=== PATIENT | male | born 1940 | race Caucasian/White ===

== ENCOUNTER → 2016-08-10 | Outpatient (CLI) | payer OTHER ==
[~2016-08-10] MED LIST: ACET-1256 PO; AMOX250S5 PO; ASPEC81 PO; CALC0.2510 PO; CHOL1CHW10 PO; CLOP1TAB15 PO; FLUT0.15; FLUT1AER5 INH; FRS/40 PO; HYDR2.5L TOP; IPRA1AER2 INH; KETO0.5S33 OPR; METO100T14 PO; PRED1SUS3 OPR; SERT-234 PO; SIMV80TA2 PO; TRIA0.5O TOP
[2016-08-10 13:02] LABS: BLOOD UREA NITROGEN 48 mg/dl (7-18); BUN/CREATININE RATIO 11.6 (10-20); CALCIUM 8.9 mg/dl (8.5-10.1); CARBON DIOXIDE 23 mmol/L (21-32); CHLORIDE 106 mmol/L (98-107); GLUCOSE 102 mg/dl (70-99); POTASSIUM 4.2 mmol/L (3.5-5.1); SODIUM 142 mmol/L (136-145)
== END | disposition home or self-care (01) ==
LOC: C.LABPVFM 10:21
PROVIDERS: ATTEND Internal Medicine Nephrology
DX: N18.4 Chronic kidney disease, stage 4 (severe) (principal); N25.81 Secondary hyperparathyroidism of renal origin; E55.9 Vitamin D deficiency, unspecified; D63.8 Anemia in other chronic diseases classified elsewhere

== ENCOUNTER → 2016-09-14 | Outpatient (CLI) | payer OTHER ==
--- NOTE | 2016-09-14 16:38 | DIAGNOSTIC IMAGING REPORT ---
CT OF THE CHEST WITHOUT IV CONTRAST CLINICAL HISTORY: Follow-up pulmonary nodules. COMPARISON STUDY: Chest CT January 15, 2015 and October 01, 2015. CT DOSE: 225.17 mGycm TECHNIQUE: Axial images of the chest were obtained without IV contrast. Images were reviewed in the axial, sagittal, and coronal planes. IV contrast was not administered for this examination. FINDINGS: There are procedural findings consistent with placement of endovascular stent graft within a large thoracoabdominal aortic aneurysm. There has been continued increase in size of the aneurysm sac since exam of October 01, 2015. This is suboptimally assessed on this unenhanced exam. The proximal descending thoracic aorta measures 9.2 x 7.6 cm. It previously measured 7 x 5.8 cm. The inferior portion of the aneurysm involving the mid descending thoracic aorta measures approximately 10.3 x 8.5 cm. It previously measured 9.3 x 6.4 cm. Areas of increased attenuation within the aneurysm sac are again noted. Severe emphysema is present. A 5 mm subpleural nodule within left lower lobe is unchanged and prior exams. This is benign. There are no new nodules. There are no suspicious pulmonary nodules. The bony thorax is unremarkable. Visualized portions of the upper abdomen demonstrate multiple hepatic cysts. IMPRESSION: 1. Severe emphysema. No suspicious pulmonary nodules. 2. Findings consistent with placement of endovascular stent graft within the thoracoabdominal aortic aneurysm. Continued increase in size of the aneurysm sac since exam of October 01, 2015, as described above. The findings are suboptimally assessed on this unenhanced exam. Discussed with Kelli Santos at time of dictation. Electronically signed by: Jayesh Hart M.D. 09/14/2016 4:35 PM Dictated Date/Time: 09/14/2016 4:06 PM
== END | disposition home or self-care (01) ==
LOC: C.CTS 13:19
PROVIDERS: ATTEND Nurse Practitioner
DX: J43.9 Emphysema, unspecified (principal); I71.6 Thoracoabdominal aortic aneurysm, without rupture

== ENCOUNTER 2016-11-27 11:19 | Emergency (ER) | payer OTHER ==
[~2016-11-27] VITALS: Ht 170.2 cm; Wt 65.6 kg
[~2016-11-27 11:19] MED LIST changes: -ACET-1256 PO; -CALC0.2510 PO; -FLUT0.15; -FLUT1AER5 INH; -FRS/40 PO; -HYDR2.5L TOP; -TRIA0.5O TOP
[2016-11-27 11:20] VITALS: TEMP 36.6; Ht 170.2 cm; Wt 65.6 kg
[2016-11-27 12:20] VITALS: BP 144/93; PULSE 79; O2SAT 96
[2016-11-27] MEDS ORDERED: DIPHTHERIA/TETANUS/PERTUSSIS 0.5 ML SYR/VIAL ONE (12:23)
--- NOTE | 2016-11-27 12:26 | EMERGENCY ROOM VISIT NOTE ---
ED Visit Note First contact with patient: 12:05 I did evaluate and examine this patient myself. I did guide management for the patient. I agree with the APC's assessment as discussed. Please see the APC's dictation for further details. The patient was scratched on the left hand by his pet cat. He has a bleeding wound to the left hand which was washed and dressed. Hemostasis was achieved. He was advised to watch for any signs of infection and to follow with his doctor.
[2016-11-27] MEDS ORDERED: DIPHTHERIA/TETANUS/PERTUSSIS 0.5 ML SYR/VIAL IM. ONE (12:30)
--- NOTE | 2016-11-27 21:39 | EMERGENCY ROOM VISIT NOTE ---
History First contact with patient: 12:05 Chief Complaint: LACERATION/CUT (NON-SUTURE) Stated Complaint: BLEEDING ON BACK OF L HAND Nursing Triage Summary: top left habd cat scratch History of Present Illness The patient is a 76 year old male who presents to the Emergency Room with complaints of a persistent bleeding wound on the back of his left hand. The patient reports that he was scratched by his cat. The patient is currently on Plavix and aspirin for history of aortic aneurysm. He was unable to stop the bleeding with direct pressure. He denies any pain, swelling or drainage from the wound. He is uncertain of his last tetanus immunization. 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 [place] (10) Hypertrophy (Benign) Of Prostate W/O Urinary Obst & Oth Luts (11) Hypothyroidism Nos (12) Mixed Hyperlipidemia (13) Thoracic Aortic Embolism (14) Thoracoabdominal Aortic Aneurysm, Without Rupture (15) Tobacco Use Disorder (16) Vitamin D Deficiency, Unspecified Surgical Problems: (1) Cataract Extraction Status, Right Eye (2) Peripheral Vascular Angioplasty Status W Implants And Grafts Family History FH: cancer FH: hypertension Social History Smoking Status: Former Smoker Alcohol Use: none Marital Status: Occupation Status: retired Current/Historical Medications Scheduled Amoxicillin (Amoxil), 40 ML PO UD Aspirin Enteric Coated (Ecotrin Or Generic *), 81 MG PO QAM Cholecalciferol (Vitamin D3), 2 TAB PO QAM Clopidogrel (Plavix), 75 MG PO QAM Ipratropium-Albuterol (Combivent Respimat), 1 PUFFS INH QID Ketorolac Tromethamine (Ophth) (Acular Oph), 1 DROPS OPR QID Metoprolol Tartrate (Lopressor) (Lopressor), 100 MG PO QAM Prednisolone Acetate 1% Oph (Pred Forte 1% Oph), 1 DROP OPR TID Sertraline (Zoloft), 100 MG PO QAM Simvastatin (Zocor), 40 MG PO QPM Allergies Coded Allergies: Heparin (Unverified Allergy, Unknown, unsure, 02/24/16) Sulfa Antibiotics (Verified Allergy, Unknown, "SULFA DRUGS": UNKNOWN, 02/23) Physical Exam Vital Signs Date Time Temp Pulse Resp B/P (MAP) Pulse Ox O2 Delivery O2 Flow Rate FiO2 11/27/16 12:20 79 18 144/93 96 Room Air 11/27/16 11:20 36.6 115 18 120/87 99 Room Air Physical Exam CONSTITUTIONAL: Healthy and well nourished. Alert and oriented X 3 with positive affect. HEENT: Normocephalic, atraumatic. Pupils equal, round and reactive. NECK: Full active range of motion without discomfort. MUSCULOSKELETAL: Examination of the dorsal left hand shows a superficial laceration with mild oozing of blood. The wound does not have a tendency to open. The patient has full extensor function of the fingers. No erythema, induration or purulent drainage from the wound. INTEGUMENTARY: No rash or other significant dermatologic conditions noted. NEUROLOGIC: No focal neurologic deficits noted. Left hand and fingers are sensory intact. Medical Decision & Procedures Medications Administered Medications (Trade) Dose Ordered Sig/[place] Route Start Time Stop Time Status Last Admin Dose Admin Diphtheria/ Pertussis/Tetanus Vacc (Adacel Inj) 0.5 ml STK-MED ONCE .ROUTE 11/27/16 12:23 11/27/16 12:24 DC 11/27/16 12:26 0.5 ML Procedure The peripheral tissue was cleansed, then a pressure dressing was applied by me using a roll of gauze and Adaptic over the wound. This was secured using Coban tape. ED Course Patient history and physical exam were performed. Nurse's notes were reviewed. Vital signs were reviewed and normal. Adacel was administered IM. A pressure dressing was applied by me. I suspect that this bleeding will easily stop with a pressure dressing. He was instructed to leave the pressure dressing in place for the next 24 hours, and return to the emergency department for any persistent bleeding, at which time I would likely place a couple sutures. The patient was happy with plan of care, and denied any pain at the time of discharge. The patient was also seen and examined by Dr. Briceno, ED attending physician, who agrees with workup and plan of care. Medical Decision Impression Primary Impression: Laceration of left hand Departure Information Referrals No Doctor, Assigned (PCP) Patient Instructions [facility] Problem Qualifiers Primary Impression: Laceration of left hand Encounter type: initial encounter Foreign body presence: without foreign body Qualified Codes: S61.412A - Laceration without foreign body of left hand , initial encounter
== END 2016-11-27 12:42 | disposition home or self-care (01) ==
LOC: C.EDB 11:20 → C.EDD 12:42
DX: S61.412A Laceration without foreign body of left hand, initial encounter (principal); W55.03XA Scratched by cat, initial encounter; Z79.01 Long term (current) use of anticoagulants; I12.9 Hypertensive chronic kidney disease with stage 1 through stage 4 chronic kidney disease, or unspecified chronic kidney disease; N18.9 Chronic kidney disease, unspecified; Z87.891 Personal history of nicotine dependence; I25.10 Atherosclerotic heart disease of native coronary artery without angina pectoris; J44.9 Chronic obstructive pulmonary disease, unspecified; I71.4 Abdominal aortic aneurysm, without rupture; E55.9 Vitamin D deficiency, unspecified

== ENCOUNTER → 2016-12-28 | Outpatient (CLI) | payer OTHER ==
[~2016-12-28] MED LIST changes: +ACET-1256 PO; +CALC0.2510 PO; +FLUT0.15; +FLUT1AER5 INH; +FRS/40 PO; +HYDR2.5L TOP; +TRIA0.5O TOP
[2016-12-28 17:16] LABS: BASO % 0.2 %; BASO ABS # 0.03 K/uL (0-0.2); COMPLETE YES; EOS % 0.1 %; HEMATOCRIT 32.7 % (42-52); IG% 0.4 %; LYMPH % 11.9 %; LYMPH ABS # 1.68 K/uL (1.2-3.4); MEAN CELL VOLUME 86.7 fL (80-100); MEAN CORPUSCULAR HEMOGLOBIN 28.6 pg (25-34); MEAN PLATELET VOLUME 8.4 fL (7.4-10.4); MONO % 8.3 %; NEUT % 79.1 %; PLATELET COUNT 420 K/uL (130-400); RED BLOOD COUNT 3.77 M/uL (4.7-6.1); WHITE BLOOD COUNT 14.14 K/uL (4.8-10.8)
[2016-12-28 17:32] LABS: ALT/SGPT 18 U/L (12-78); AST/SGOT 21 U/L (15-37); BLOOD UREA NITROGEN 46 mg/dl (7-18); BUN/CREATININE RATIO 11.2 (10-20); CALCIUM 9.1 mg/dl (8.5-10.1); CARBON DIOXIDE 20 mmol/L (21-32); CHLORIDE 103 mmol/L (98-107); GLUCOSE 113 mg/dl (70-99); POTASSIUM 4.2 mmol/L (3.5-5.1); SODIUM 134 mmol/L (136-145)
[2016-12-28 17:35] LABS: ALB/GLOB RATIO 0.5 (0.9-2); ALKALINE PHOSPHATASE 79 U/L (45-117)
== END | disposition home or self-care (01) ==
LOC: C.LABPVFM 14:11
PROVIDERS: ATTEND Nurse Practitioner
DX: I12.9 Hypertensive chronic kidney disease with stage 1 through stage 4 chronic kidney disease, or unspecified chronic kidney disease (principal); R53.1 Weakness; N18.9 Chronic kidney disease, unspecified

== ENCOUNTER → 2017-01-02 | Outpatient (CLI) | payer OTHER | END | disposition home or self-care (01) | LOC: C.LABPVFM 10:57 | PROVIDERS: ATTEND Nurse Practitioner | DX: R63.4 Abnormal weight loss (principal); R53.1 Weakness ==

== ENCOUNTER 2017-01-14 13:52 | Inpatient (IN) | payer OTHER ==
[~2017-01-14] VITALS: Ht 170.2 cm; Wt 57.0 kg
[~2017-01-14 13:52] MED LIST changes: -ACET-1256 PO; -CALC0.2510 PO; -FLUT0.15; -FLUT1AER5 INH; -FRS/40 PO; -HYDR2.5L TOP; -TRIA0.5O TOP
[2017-01-14] MEDS ORDERED: HYDR2.5L TOP (14:58)
[2017-01-14] MEDS ORDERED: CALC0.2510 PO (14:58)
[2017-01-14] MEDS ORDERED: FRS/40 PO (14:58)
[2017-01-14] MEDS ORDERED: ACET-1256 PO (14:58)
[2017-01-14] MEDS ORDERED: TRIA0.5O TOP (14:58)
[2017-01-14] MEDS ORDERED: FLUT1AER5 INH (14:58)
[2017-01-14 15:00] VITALS: BP 123/75; PULSE 111; TEMP 36.6; O2SAT 96; Ht 170.2 cm; Wt 57.0 kg
[2017-01-14] MEDS ORDERED: ONDANSETRON INJ 2 MG/ML 2 ML VIAL IV PRN (15:00)
[2017-01-14 15:31] LABS: HEMATOCRIT 27.9 % (42-52); MEAN CELL VOLUME 85.8 fL (80-100); MEAN CORPUSCULAR HEMOGLOBIN 28.6 pg (25-34); MEAN CORPUSCULAR HGB CONC 33.3 g/dl (32-36); MEAN PLATELET VOLUME 7.8 fL (7.4-10.4); PLATELET COUNT 325 K/uL (130-400); RED BLOOD COUNT 3.25 M/uL (4.7-6.1)
[2017-01-14] MEDS ORDERED: FLUT0.15 (15:38)
[2017-01-14 15:42] LABS: INR 1.1 (0.9-1.1); PARTIAL THROMBOPLASTIN RATIO 1.2; PROTHROMBIN TIME (PATIENT) 11.8 SECONDS (9.0-12.0)
[2017-01-14] MEDS ORDERED: PROMETHAZINE HCL INJ 12.5 MG in SODIUM CHLORIDE 0.9% 50ML 50 ML IV PRN (15:45)
--- NOTE | 2017-01-14 15:54 | DIAGNOSTIC IMAGING REPORT ---
CHEST ONE VIEW PORTABLE CLINICAL HISTORY: Preoperative chest COMPARISON STUDY: CT scan dated 09/14/2016 FINDINGS: There is a stented aneurysm of the descending thoracic aorta. The heart is normal in size. There is no failure. There is no focal pulmonary consolidation.[ IMPRESSION: 1. No active disease in the chest 2. Endovascular stent graft within a thoracic aortic aneurysm. Electronically signed by: Caleb Meneses M.D. 01/14/2017 3:53 PM Dictated Date/Time: 01/14/2017 3:52 PM
[2017-01-14 15:56] LABS: BUN/CREATININE RATIO 10.6 (10-20); CREATININE 3.3 mg/dl (0.60-1.40); MAGNESIUM 2.2 mg/dl (1.8-2.4); POTASSIUM 3.8 mmol/L (3.5-5.1)
[2017-01-14 15:59] LABS: ALB/GLOB RATIO 0.4 (0.9-2); PHOSPHORUS 3.8 mg/dl (2.5-4.9)
[2017-01-14 16:17] VITALS: BP 113/73; PULSE 104; TEMP 36.8; O2SAT 96
--- NOTE | 2017-01-14 17:36 | History and Physical ---
History & Physical Date & Time of Service: Jan 14, 2017 ~ 15:00 Chief Complaint: End Stage Renal Disease Primary Care Physician: Kelli Santos C.R.N.P History of Present Illness 76 year old male who presents to the hospital for direct admission by referral of Dr. Galan for initiation of dialysis. Patient has a long standing history of CKD. He had a large AAA repair done in 2014 with subsequent NICHOLAS from which he never recovered. He has been getting close to need dialysis. He has nephrotic range proteinuria with severe underlying vascular disease. Over the past month patient reports increasing weakness. He has a few falls from which he attributes to loosing his balance. No loss of consciousness. He reports episodes of mild confusion. He has had a very poor appetite and weight loss of 15 pounds. He has had a few episodes of vomiting. He denies hematemesis or coffee ground emesis. No abdominal pain or diarrhea. He denies chest pain and shortness of breath. No lower extremity edema. He denies fever and chills. He continues to make a small amount of urine. At the time of my exam, patient is resting in bed in no acute distress. Past Medical/Surgical History Medical Problems: (1) Abdominal aortic aneurysm Status: Chronic (2) Anemia, chronic disease Status: Chronic (3) CKD (chronic kidney disease), stage IV Status: Chronic (4) Dyslipidemia Status: Chronic (5) Heparin induced thrombocytopenia Status: Chronic (6) HTN (hypertension) Status: Chronic (7) Thoracic aortic aneurysm Permanent Comment: CT 09/2016 - The proximal descending thoracic aorta measures 9.2 x 7.6 cm. It previously measured 7 x 5.8cm. The inferior portion of the aneurysm involving the mid descending thoracic aorta measures approximately 10.3 x 8.5 cm. It previously measured 9.3 x 6.4 cm. Status: Chronic (8) Thoracic Aortic Stent Graft Status: Chronic Surgical Problems: (1) H/O thoracic aortic aneurysm repair Permanent Comment: 07/30/2014- endovascular repair descending thoracic aortic; [facility] [place] Status: Chronic (2) History of vasectomy Status: Chronic (3) S/P AAA repair Permanent Comment: 07/05/2006- open AAA repair with tube graft, suprarenal clamp , Dr. Aviles Status: Chronic (4) S/P tonsillectomy Status: Chronic Family History FH: cancer FH: hypertension Social History Smoking Status: Former Smoker Alcohol Use: none Immunizations History of Influenza Vaccine: Yes Influenza Vaccine Date: Jul 31, 2014 Multi-Drug Resistant Organisms History of MDRO: No Allergies Coded Allergies: Heparin (Unverified Allergy, Unknown, unsure, 02/24/16) Sulfa Antibiotics (Verified Allergy, Unknown, "SULFA DRUGS": UNKNOWN, 02/23) Home Medications Scheduled Aspirin Enteric Coated (Ecotrin Or Generic *), 81 MG PO QAM Calcitriol (Rocaltrol Cap), 1 CAP PO 3XWK Cholecalciferol (Vitamin D3), 3 TAB PO QAM Clopidogrel (Plavix), 75 MG PO QAM Fluticasone Propionate (Nasal) (Flonase Allergy Relief), 2 SPRAYS NA BID Hydrocortisone (Topical) (Hydrocortisone), 1 APPLN TOP BID Ipratropium-Albuterol (Combivent Respimat), 1 PUFFS INH QID Metoprolol Tartrate (Lopressor) (Lopressor), 50 MG PO BID Sertraline (Zoloft), 50 MG PO QAM Simvastatin (Zocor), 40 MG PO QPM Scheduled PRN Acetaminophen (Tylenol), 1 TAB PO Q8 PRN for Headache Triamcinolone Acetonide (Topic (Triamcinolone Acetonide), 1 APPLN TOP BID PRN for prn Review of Systems ROS per HPI, all other systems reviewed and negative Physical Exam Vital Signs Date Time Temp Pulse Resp B/P (MAP) Pulse Ox O2 Delivery O2 Flow Rate FiO2 01/14/17 16:17 36.8 104 20 113/73 (86) 96 Room Air 01/14/17 15:00 36.6 111 19 123/75 96 Room Air General Appearance: no apparent distress Head: normocephalic Eyes: normal inspection ENT: hearing grossly normal Neck: supple, no JVD Respiratory/Chest: lungs clear, normal breath sounds, no respiratory distress Cardiovascular: regular rate, rhythm, no edema, normal peripheral pulses Abdomen/GI: normal bowel sounds, non tender, soft Extremities/Musculoskelatal: normal inspection, no calf tenderness Neurologic/Psych: no motor/sensory deficits, alert, normal mood/affect, oriented x 3 Skin: normal color, warm/dry Diagnostics Laboratory Results Results Past 24 Hours Test 01/14/17 15:13 Range/Units White Blood Count 8.50 4.8-10.8 K/uL Red Blood Count 3.25 4.7-6.1 M/uL Hemoglobin 9.3 14.0-18.0 g/dL Hematocrit 27.9 42-52 % Mean Corpuscular Volume 85.8 80-100 fL Mean Corpuscular Hemoglobin 28.6 25-34 pg Mean Corpuscular Hemoglobin Concent 33.3 32-36 g/dl RDW Standard Deviation 46.1 36.4-46.3 fL RDW Coefficient of Variation 14.5 11.5-14.5 % Platelet Count 325 130-400 K/uL Mean Platelet Volume 7.8 7.4-10.4 fL Prothrombin Time 11.8 9.0-12.0 SECONDS Prothromb Time International Ratio 1.1 0.9-1.1 Activated Partial Thromboplast Time 30.8 21.0-31.0 SECONDS Partial Thromboplastin Ratio 1.2 Sodium Level 136 136-145 mmol/L Potassium Level 3.8 3.5-5.1 mmol/L Chloride Level 103 98-107 mmol/L Carbon Dioxide Level 25 21-32 mmol/L Anion Gap 8.0 3-11 mmol/L Blood Urea Nitrogen 35 7-18 mg/dl Creatinine 3.30 0.60-1.40 mg/dl Est Creatinine Clear Calc Drug Dose 16.2 ml/min Estimated GFR () 19.6 Estimated GFR (Non- 16.9 BUN/Creatinine Ratio 10.6 10-20 Random Glucose 104 70-99 mg/dl Calcium Level 9.0 8.5-10.1 mg/dl Phosphorus Level 3.8 2.5-4.9 mg/dl Magnesium Level 2.2 1.8-2.4 mg/dl Total Bilirubin 0.3 0.2-1 mg/dl Aspartate Amino Transf (AST/SGOT) 19 15-37 U/L Alanine Aminotransferase (ALT/SGPT) 26 12-78 U/L Alkaline Phosphatase 91 45-117 U/L Total Protein 7.3 6.4-8.2 gm/dl Albumin 1.9 3.4-5.0 gm/dl Globulin 5.4 2.5-4.0 gm/dl Albumin/Globulin Ratio 0.4 0.9-2 Diagnostic Radiology CXR IMPRESSION: 1. No active disease in the chest 2. Endovascular stent graft within a thoracic aortic aneurysm. Impression Assessment and Plan ESRD - admitted to tele - patient with long standing history of CKD with nephrotic range proteinuria, has been close to needing dialysis, developed uremic symptoms over the past month - patient referred for direct admission by nephrology for placement of tunnelled dialysis catheter and to start HD - does not appear to be volume overloaded - creat at recent baseline - ASA and Plavix on hold for catheter placement tomorrow with Dr. Farrell - case discussed with Dr. 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 DISPO - In my clinical judgment this beneficiary meets acute admission criteria, established by [facility], that includes being hospitalized through two midnights. Advanced Directives Existing Living Will: No Existing Power of Butcher Apprentice: No VTE Prophylaxis VTE Risk Assessment Done? Y/N: Yes Risk Level: Moderate Note ATTENDING ADDENDUM Record reviewed. Patient interviewed and examined. Care coordinated with SAILAJA Shaw. Please refer to her documentation for patient's history. Briefly, 76-year-old male followed by Dr. Yarbrough for Nephrology with progressive renal disease and associated uremic symptoms. Admitted for vascular access and initiation of hemodialysis. EXAM: General- no acute distress VS- as noted Lungs- clear to auscultation Heart- regular Abdomen- normal bowel sounds, soft, nontender Extremities- no pretibial edema or calf tenderness Neuro- alert, oriented DATA: Lab studies as noted. ASSESSMENT AND PLAN: Progressive CKD, now with uremic symptoms. Admitted for vascular access and initiation of hemodialysis. Nephrology and Vascular Surgery consulted. Please refer to MEHREEN Brewer's documentation for discussion of other issues. Walter Marrero MD .
[2017-01-14] MEDS: IPRATROPIUM BROMIDE/ALBUTEROL respimat INH INH SCH ×2 (17:57→20:30)
--- NOTE | 2017-01-14 18:08 | NEPHROLOGY CONSULTATION ---
DATE OF CONSULTATION: 01/14/2017 ATTENDING OF RECORD: Dr. Marrero. REASON FOR CONSULTATION: CKD stage V, not yet on dialysis. HISTORY OF PRESENT ILLNESS: This is a 76-year-old male with CKD stage V, not yet on dialysis, who follows with my partner, Dr. Sapna Yarbrough, significant history includes thoracoabdominal aortic aneurysm, who underwent a repair in 2014 with a hybrid graft. 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 The patient had an atrophic right kidney. No NSAIDs. The patient is also with a history of esophageal dilatation. The patient did visit the [facility] for dialysis training. The patient is interested in doing dialysis at home if possible. The patient over the past 6 weeks had had worsening weight loss, fatigue, decreased appetite, nausea, vomiting and several falls. The patient feels that it is time to start dialysis. PAST MEDICAL HISTORY: AAA, HIT, CKD stage V, COPD, hyperlipidemia, and anemia of chronic kidney disease. PAST SURGICAL HISTORY: AAA repair x2, tonsillectomy, and vasectomy. FAMILY HISTORY: Significant for AAA in brother. SOCIAL HISTORY: The patient is single, but has a significant other, who lives with him for over 20 years. Former smoker, quit in 2014. Occasional alcohol. No drugs. REVIEW OF SYSTEMS: No fevers. Positive fatigue. Positive weight loss. No headaches. No vision difficulty. No dysphagia. Positive shortness of breath on exertion, which is chronic. No chest pain or edema. No cough. Positive nausea. Positive vomiting. No hematuria. Positive nocturia. No arthritis. No rash or itching. All other review of systems otherwise negative. CURRENT MEDICATIONS: Reviewed: PHYSICAL EXAMINATION: VITAL SIGNS: Stable. GENERAL: Awake, alert, and oriented x3. EYES: No scleral icterus. ENT: Moist mucous membranes. NECK: Supple. PULMONARY: Clear to auscultation. CARDIAC: regular ABDOMEN: Bowel sounds positive. Soft and nontender. EXTREMITIES: No clubbing, cyanosis or edema. NEUROLOGICAL: Nonfocal. DERMATOLOGIC: No rash or ulcers noted. LABORATORY DATA: White count 8.5, H&H 9.3 and 27.9, and platelet count is 325. BMP is pending. Coags pending. IMPRESSION AND PLAN: 1. Chronic kidney disease, stage V with uremic symptoms. Plan is for a tunneled line tomorrow by Dr. Farrell. Currently n.p.o. past midnight. We will continue to hold the patient's Plavix. Plan on a short 2-hour dialysis treatment after tunneled line placement tomorrow and we will dialyze daily and arrange for dialysis to be set up at the [facility]. 2. Anemia of renal failure. Hemoglobin level 9.3. We will discuss with the patient to if he has been on Procrit and see if he is agreeable to starting Procrit. 3. Renal osteodystrophy. We will check phosphorus levels and dose phosphate binders accordingly. I appreciate the consultation. BONILLA
[2017-01-14 19:03] VITALS: BP 117/76; PULSE 117; TEMP 36.8; O2SAT 94
[2017-01-14 20:00] VITALS: O2SAT 94
[2017-01-14] MEDS: FLUTICASONE PROPIONATE NA SPR 16 GM BTL SCH (20:30)
[2017-01-14] MEDS: METOPROLOL TARTRATE 50 MG TAB PO SCH (20:31)
[2017-01-14] MEDS: SIMVASTATIN 40 MG TAB PO SCH (20:31)
[2017-01-14] MEDS: ACETAMINOPHEN 325 MG TAB PO PRN (22:13)
[2017-01-14 23:23] VITALS: BP 107/67; PULSE 89; TEMP 36.8; O2SAT 96
[2017-01-15] VITALS (11 sets, daily range): BP systolic 108–123; BP diastolic 64–73; PULSE 81–101; TEMP 36.4–37; O2SAT 94–97
[2017-01-15] MEDS ORDERED: ACETAMINOPHEN IV 1,000 MG in EMPTY BAG 0 ML IV SCH (02:15)
[2017-01-15] MEDS: ACETAMINOPHEN IV 1,000 MG in EMPTY BAG 0 ML IV SCH ×3 (02:23→18:15)
[2017-01-15 06:57] LABS: HEMATOCRIT 26.2 % (42-52); MEAN CELL VOLUME 85.6 fL (80-100); MEAN CORPUSCULAR HEMOGLOBIN 28.1 pg (25-34); MEAN CORPUSCULAR HGB CONC 32.8 g/dl (32-36); MEAN PLATELET VOLUME 8.1 fL (7.4-10.4); PLATELET COUNT 301 K/uL (130-400); RED BLOOD COUNT 3.06 M/uL (4.7-6.1); WHITE BLOOD COUNT 7.59 K/uL (4.8-10.8)
[2017-01-15 07:27] LABS: BUN/CREATININE RATIO 10.9 (10-20); CALCIUM 8.5 mg/dl (8.5-10.1); CREATININE 3.3 mg/dl (0.60-1.40); MAGNESIUM 2.3 mg/dl (1.8-2.4); PHOSPHORUS 4.3 mg/dl (2.5-4.9); POTASSIUM 3.5 mmol/L (3.5-5.1)
[2017-01-15] MEDS: FLUTICASONE PROPIONATE NA SPR 16 GM BTL SCH ×2 (07:33→20:52)
[2017-01-15] MEDS: CALCITRIOL 0.25 MCG CAP PO SCH (07:33)
[2017-01-15] MEDS: IPRATROPIUM BROMIDE/ALBUTEROL respimat INH INH SCH ×4 (07:33→20:53)
[2017-01-15] MEDS: METOPROLOL TARTRATE 50 MG TAB PO SCH ×2 (07:33→20:53)
[2017-01-15] MEDS: SERTRALINE HCL 50 MG TAB PO SCH (07:33)
[2017-01-15] MEDS: CHOLECALCIFEROL 1000 INTER.UNIT TAB PO SCH (07:33)
[2017-01-15] MEDS ORDERED: POLYETHYLENE (MIRALAX) 17 GM PACK PO PRN (07:45)
--- NOTE | 2017-01-15 07:47 | Nephrology Progress Note ---
Nephrology Progress Note Date of Service: Jan 15, 2017. Subjective 76 yo male with ckd stage 5 with uremic symptoms. currently npo for tunneled line today. pts bms have decreased to once every three to five days although appetite is decreased as well. pt does not necessarily feel constipated. Objective Date Time Temp Pulse Resp B/P (MAP) Pulse Ox O2 Delivery O2 Flow Rate FiO2 01/15/17 07:11 36.7 86 20 111/70 (84) 94 Room Air 01/15/17 04:28 36.4 86 16 108/69 (82) 97 Room Air 01/15/17 04:00 Room Air 01/15/17 00:00 Room Air 01/14/17 23:23 36.8 89 18 107/67 (80) 96 Room Air 01/14/17 20:00 94 Room Air 01/14/17 19:03 36.8 117 20 117/76 (90) 94 Room Air 01/14/17 16:17 36.8 104 20 113/73 (86) 96 Room Air 01/14/17 15:00 36.6 111 19 123/75 96 Room Air Physical Exam: General-aaox3 Eyes-no scleral icterus ENT-mmm Neck-supple Lungs-cta Heart-rrr Abdomen-bs+ s/nt/nd Extremities-no c/c/e Neuro-nonfocal Current Inpatient Medications Medications (Trade) Dose Ordered Sig/[place] Route Start Time Stop Time Status Last Admin Dose Admin Acetaminophen (Tylenol Tab) 650 mg Q4H PRN PO 01/14/17 15:00 02/13/17 14:59 01/14/17 22:13 325 MG Calcitriol (Rocaltrol Cap) 0.25 mcg MoWeFr@0900 PO 01/15/17 09:00 02/14/17 08:59 01/15/17 07:33 0.25 MCG Fluticasone Propionate (Flonase Nasal [place]) 2 sprays BID NA 01/14/17 21:00 02/13/17 20:59 01/15/17 07:33 2 SPRAYS Albuterol/ Ipratropium (Combivent Respimat Inh) 1 puffs QID INH 01/14/17 17:00 02/13/17 16:59 01/15/17 07:33 1 PUFFS Metoprolol Tartrate (Lopressor Tab) 50 mg BID PO 01/14/17 21:00 02/13/17 20:59 01/15/17 07:33 50 MG Sertraline HCl (Zoloft Tab) 50 mg QAM PO 01/15/17 09:00 02/14/17 08:59 01/15/17 07:33 50 MG Simvastatin (Zocor Tab) 40 mg QPM PO 01/14/17 21:00 02/13/17 20:59 01/14/17 20:31 40 MG Cholecalciferol (Vitamin D Tab) 3,000 inter.unit QAM PO 01/15/17 09:00 02/14/17 08:59 01/15/17 07:33 3,000 INTER.UNIT Promethazine HCl 12.5 mg/Sodium Chloride 50.5 ml @ 204 mls/hr Q6H PRN IV 01/14/17 15:45 02/13/17 15:44 Acetaminophen 1000 mg/Empty Bag 100 ml @ 400 mls/hr Q8H IV 01/15/17 02:15 02/14/17 02:14 01/15/17 02:23 400 MLS/HR Last 24 Hours Test 01/14/17 15:13 01/15/17 06:18 White Blood Count 8.50 K/uL 7.59 K/uL Red Blood Count 3.25 M/uL 3.06 M/uL Hemoglobin 9.3 g/dL 8.6 g/dL Hematocrit 27.9 % 26.2 % Mean Corpuscular Volume 85.8 fL 85.6 fL Mean Corpuscular Hemoglobin 28.6 pg 28.1 pg Mean Corpuscular Hemoglobin Concent 33.3 g/dl 32.8 g/dl RDW Standard Deviation 46.1 fL 46.2 fL RDW Coefficient of Variation 14.5 % 14.7 % Platelet Count 325 K/uL 301 K/uL Mean Platelet Volume 7.8 fL 8.1 fL Prothrombin Time 11.8 SECONDS Prothromb Time International Ratio 1.1 Activated Partial Thromboplast Time 30.8 SECONDS Partial Thromboplastin Ratio 1.2 Sodium Level 136 mmol/L 137 mmol/L Potassium Level 3.8 mmol/L 3.5 mmol/L Chloride Level 103 mmol/L 104 mmol/L Carbon Dioxide Level 25 mmol/L 24 mmol/L Anion Gap 8.0 mmol/L 9.0 mmol/L Blood Urea Nitrogen 35 mg/dl 36 mg/dl Creatinine 3.30 mg/dl 3.30 mg/dl Est Creatinine Clear Calc Drug Dose 16.2 ml/min 15.3 ml/min Estimated GFR () 19.6 19.6 Estimated GFR (Non- 16.9 16.9 BUN/Creatinine Ratio 10.6 10.9 Random Glucose 104 mg/dl 107 mg/dl Calcium Level 9.0 mg/dl 8.5 mg/dl Phosphorus Level 3.8 mg/dl 4.3 mg/dl Magnesium Level 2.2 mg/dl 2.3 mg/dl Total Bilirubin 0.3 mg/dl Aspartate Amino Transf (AST/SGOT) 19 U/L Alanine Aminotransferase (ALT/SGPT) 26 U/L Alkaline Phosphatase 91 U/L Total Protein 7.3 gm/dl Albumin 1.9 gm/dl Globulin 5.4 gm/dl Albumin/Globulin Ratio 0.4 Assessment & Plan CKD stage 5-uremic symptoms including decreased appetite, fatigue, nausea and recent vomiting. for tunneled line today and will do daily dialysis today, tomorrow and wednesday. will speak with mental health case manager about getting pt approved at local dialysis unit. Anemia of renal failure-no cancer history, pt is agreeable to procrit, will give low dose procrit today on dialysis as initial dose.
[2017-01-15] MEDS ORDERED: EPOETIN ALFA 10,000 UNITS/ML VIAL IV. ONE (08:00)
[2017-01-15] MEDS ORDERED: EPOETIN ALFA INJ 4,000 UNITS in SYRINGE 0 ML IV. SCH (09:00)
[2017-01-15] MEDS ORDERED: CEFAZOLIN SOD 1000MG/55 ML D5W IV ONE (19:08)
--- NOTE | 2017-01-15 19:09 | Surgery Consultation ---
Consultation Date of Service Jan 15, 2017. Chief Complaint End stage renal disease History of Present Illness The patient is a 76 year old male who has had worsening kidney function and now requires dialysis. Permcath was recommended. Denies fever or chills. Vitals Vital Signs Past 12 Hours Date Time Temp Pulse Resp B/P (MAP) Pulse Ox O2 Delivery O2 Flow Rate FiO2 01/15/17 16:00 94 Room Air 01/15/17 15:18 36.8 99 23 123/64 (83) 94 Room Air 01/15/17 12:26 94 Room Air 01/15/17 10:51 36.8 81 20 113/71 (85) 95 Room Air 01/15/17 08:01 94 Room Air 01/15/17 08:01 94 Room Air 01/15/17 07:11 36.7 86 20 111/70 (84) 94 Room Air Allergies Coded Allergies: Heparin (Unverified Allergy, Unknown, unsure, 02/24/16) Sulfa Antibiotics (Verified Allergy, Unknown, "SULFA DRUGS": UNKNOWN, 02/23) Home Medications Scheduled Aspirin Enteric Coated (Ecotrin Or Generic *), 81 MG PO QAM Calcitriol (Rocaltrol Cap), 1 CAP PO 3XWK Cholecalciferol (Vitamin D3), 3 TAB PO QAM Clopidogrel (Plavix), 75 MG PO QAM Fluticasone Propionate (Nasal) (Flonase Allergy Relief), 2 SPRAYS NA BID Hydrocortisone (Topical) (Hydrocortisone), 1 APPLN TOP BID Ipratropium-Albuterol (Combivent Respimat), 1 PUFFS INH QID Metoprolol Tartrate (Lopressor) (Lopressor), 50 MG PO BID Sertraline (Zoloft), 50 MG PO QAM Simvastatin (Zocor), 40 MG PO QPM Scheduled PRN Acetaminophen (Tylenol), 1 TAB PO Q8 PRN for Headache Triamcinolone Acetonide (Topic (Triamcinolone Acetonide), 1 APPLN TOP BID PRN for prn Problem List Medical Problems: (1) Abdom Aortic Aneurysm (2) Abdominal aortic aneurysm (3) Anemia, chronic disease (4) Chronic Obstructive Pulmonary Disease, Unspecified (5) CKD (chronic kidney disease), stage IV (6) Coronary Atherosclerosis Of [place] Coronary Vessel (7) Diaphragmatic Hernia (8) Dyslipidemia (9) Emphysema Nec (10) Esophageal Reflux (11) Esophageal Stricture (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 (13) HTN (hypertension) (14) Hypertension Nos (15) 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/Unsp Chr [place] (16) Hypertrophy (Benign) Of Prostate W/O Urinary Obst & Oth Luts (17) Hypothyroidism Nos (18) Mixed Hyperlipidemia (19) Thoracic aortic aneurysm (20) Thoracic Aortic Embolism (21) Thoracic Aortic Stent Graft (22) Thoracoabdominal Aortic Aneurysm, Without Rupture (23) Tobacco Use Disorder (24) Vitamin D Deficiency, Unspecified Surgical Problems: (1) Cataract Extraction Status, Right Eye (2) H/O thoracic aortic aneurysm repair (3) History of vasectomy (4) Peripheral Vascular Angioplasty Status W Implants And Grafts (5) S/P AAA repair (6) S/P tonsillectomy Surgical / Medical History Hx Cardiac Surgery: Yes (AAA REPAIR X3 WITH STENT) Hx Abdominal Surgery: No Hx Cancer Surgery: No Hx Thoracic Surgery: No Hx Orthopedic: No Hx Urinary Tract Surgery: Yes (VASECTOMY) Past Medical/Surgical History: Heart Disease, High Cholesterol Family History FH: cancer FH: hypertension Social History Smoking Status: Former Smoker Hx Tobacco Use In Past Year?: No (2.5 years ago) Hx Alcohol Use - Type & Amnt: No Hx Substance Use -Type & Amnt: No Review of Systems Respiratory: No cough, No cyanosis, No VALENTIN, No hemoptysis, No orthopnea, No PND , No short of breath, No sputum production, No stridor, No wheezing, No dyspnea , No problem reported Cardiovascular: No chest pain, No chest tightness, No chest pressure, No palpitations, No syncope, No diaphoresis, No edema, No intermittent claudication , No orthopnea, No cyanosis, No mumur, No lightheadedness, No paroxysmal nocturnal dyspnea, No problem reported Gastrointestinal: No abdominal pain, No constipation, No diarrhea, No nausea, No vomiting, No anorexia, No appetite changes, No belching, No flatulence, No food intolerance, No hematemesis, No hemorrhoids, No hematochezia, No stool changes, No heartburn, No indigestion, No dysphagia, No rectal bleeding, No problem reported Physical Exam Constitutional: General Apperance: heathly-appearing, well-nourished, well-developed Level of Distress: NAD Ambulation: ambulating normally Psychiatric: Mental Status: active & alert Orientation: oriented except where noted Memory: recent memory normal, remote memory normal Lungs: Auscultation: breath sounds normal Cardiovascular: Heart Auscultation: RRR Peripheral Pulses: Radial Pulse: normal on the left, normal on the right Femoral Pulse: normal on the left, normal on the right Abdomen: Inspection & Palpation: soft Musculoskeletal: normal Extremities: Upper Right: no cyanosis, no edema, no varicosities, no palpable cord, no clubbing, no ulcers, no mottling Upper Left: no cyanosis, no edema, no palpable cord, no clubbing, no ulcers , no mottling Lower Right: no cyanosis, no edema, no varicosities, no palpable cord, no clubbing, no ulcers, no mottling Lower Left: no cyanosis, no edema, no varicosities, no palpable cord, no clubbing, no ulcers, no mottling Neurologic: Cranial Nerves: grossly intact Assessment and Plan Imp: End stage renal disease Plan: Patient is here for an insertion of a permcath. I have discussed the risks options and benefits of the procedure with the patient. The patient understands the risks options and benefits and agrees to the procedure.
--- NOTE | 2017-01-15 19:10 | Procedure Note ---
Pre-Mod Sedation Assessment General Date of Moderate Sedation: Jan 15, 2017. Vital Signs: Vital Signs Past 12 Hours Date Time Temp Pulse Resp B/P (MAP) Pulse Ox O2 Delivery O2 Flow Rate FiO2 01/15/17 16:00 94 Room Air 01/15/17 15:18 36.8 99 23 123/64 (83) 94 Room Air 01/15/17 12:26 94 Room Air 01/15/17 10:51 36.8 81 20 113/71 (85) 95 Room Air 01/15/17 08:01 94 Room Air 01/15/17 08:01 94 Room Air 01/15/17 07:11 36.7 86 20 111/70 (84) 94 Room Air Pre-Sedation Airway Assessment Oral Cavity: WNL Smoking Status: Former Smoker Mallampati Classification: Class I ASA Classification: Class IV Notes The planned sedation has been discussed with the patient and consent obtained. I have identified the patient, determined the appropriateness of sedation and have assessed the patient immediately prior to the procedure. All medicine(s) and interventions are by my order.
[2017-01-15] MEDS ORDERED: MIDAZOLAM HCL 1 MG/ML 2ML VIAL ONE (19:24)
[2017-01-15] MEDS ORDERED: FENTANYL CITRATE INJ 50 MCG/1 ML 2 ML VIAL ONE (19:24)
[2017-01-15] MEDS ORDERED: CEFAZOLIN IV 1,000 MG in DEXTROSE 5% 50ML 50 ML IV SCH (19:30)
[2017-01-15] MEDS ORDERED: MIDAZOLAM HCL 1 MG/ML 2ML VIAL IV ONE (19:38)
[2017-01-15] MEDS ORDERED: FENTANYL CITRATE INJ 50 MCG/1 ML 2 ML VIAL IV ONE (19:39)
[2017-01-15] MEDS ORDERED: LIDOCAINE HCL 1% 20 ML VIAL INFIL ONE (19:44)
--- NOTE | 2017-01-15 19:56 | [facility] Post Operative Brief Note ---
Immediate Operative Summary Operative Date Jan 15, 2017. Pre-Operative Diagnosis End stage renal disease Post-Operative Diagnosis Same Procedure(s) Performed Insertion of right internal jugular vein permcath, usn localization of int jug vein, fluoro for positioning, conscious sedation (193- 1956) Surgeon randall Welt Edge Rounder Surgeon(s) Dennis Cardenas MD Estimated Blood Loss 3 Findings tip in distal SVC Specimens none Anesthesia Local with sedation Complication(s) None Disposition
--- NOTE | 2017-01-15 19:58 | [facility] Operative Report ---
Operative Report Operative Date Jan 15, 2017. Pre-Operative Diagnosis End stage renal disease Post-Operative Diagnosis Same Procedure(s) Performed Insertion of right internal jugular vein permcath, usn localization of int jug vein, fluoro for positioning, conscious sedation (1938- Surgeon randall Lap Machine Operator Surgeon(s) Dennis Cardenas MD Estimated Blood Loss 3 Findings tip of the catheter is in the SVC fluoro time 0.2min Rad:1mGy Specimens none Anesthesia Local with sedation Complication(s) None Disposition Recovery Room / PACU Indications 76 year old male who presents to the hospital for direct admission by referral of Dr. Galan for initiation of dialysis. Patient has a long standing history of CKD. He had a large AAA repair done in 2014 with subsequent NICHOLAS from which he never recovered. pt now needs HD. Description of Procedure Patient was takent to the angio suite and placed in the supine position. The right side of the neck and chest wall were prepped and draped in a sterile manner. Local anesthesia was then administered to the appropriate areas of the neck and chest wall. Ultrasound was then used to locate the right internal jugular vein. The vein compressed easily, had no filing defects, and was patent. The vein was then punctured under direct ultrasound imaging. A guidewire was then passed centrally under fluoroscopic imaging. A stab wound was then made in the anterior chest wall and a 19 cm permcath was passed from the stab wound on the chest wall to the puncture site on the neck. The puncture site was then dilated till the 14Fr peel away sheath was inserted. The permcath was then inserted through the sheath to a central position in the distal superior vena cava. The peel away sheath was then removed. The catheter was then sutured in place using nylon sutures. The puncture was then closed using a 4-0 Vicryl subcuticular suture. Dermabond was used for a dressing on the puncture site. Both ports aspirated and flushed easily and were then packed with heparin. A sterile dressing was applied to the catheter. The patient left the angio suite in good condition and tolerated the procedure well. I, Dr. Farrell was present and scrubbed for the entire procedure. I attest to the content of the Intraoperative Record and any orders documented therein. Any exceptions are noted below.
--- NOTE | 2017-01-15 19:59 | Procedure Note ---
Post-Moderate Sedation Plan General Date of Moderate Sedation Jan 15, 2017. Vital Signs: Vital Signs Past 12 Hours Date Time Temp Pulse Resp B/P (MAP) Pulse Ox O2 Delivery O2 Flow Rate FiO2 01/15/17 19:20 36.8 99 23 123/64 94 Room Air 01/15/17 16:00 94 Room Air 01/15/17 15:18 36.8 99 23 123/64 (83) 94 Room Air 01/15/17 12:26 94 Room Air 01/15/17 10:51 36.8 81 20 113/71 (85) 95 Room Air 01/15/17 08:01 94 Room Air 01/15/17 08:01 94 Room Air Review - Discharge Plan Post Moderate Sedation Plan: On clinical assessment, the patient appears to have tolerated the conscious sedation without complications. Patient is recovering as anticipated. Patient will continue to be monitored by nursing and may be discharged when conscious sedation discharge criteria are met.
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
[2017-01-15] MEDS: ACETAMINOPHEN 325 MG TAB PO PRN (20:55)
[2017-01-15] MEDS: SIMVASTATIN 40 MG TAB PO SCH (20:57)
[2017-01-16] VITALS (16 sets, daily range): BP systolic 105–157; BP diastolic 65–90; PULSE 69–114; TEMP 36.5–37.2; O2SAT 91–99
[2017-01-16] MEDS: ACETAMINOPHEN IV 1,000 MG in EMPTY BAG 0 ML IV SCH ×3 (02:20→18:22)
[2017-01-16] MEDS ORDERED: EPOETIN ALFA INJ 6,000 UNITS in SYRINGE 0 ML IV. SCH (08:00)
[2017-01-16 08:10] LABS: CREATININE 3.4 mg/dl (0.60-1.40)
[2017-01-16 08:11] LABS: BUN/CREATININE RATIO 13.2 (10-20); CALCIUM 8.8 mg/dl (8.5-10.1); POTASSIUM 3.7 mmol/L (3.5-5.1)
[2017-01-16] MEDS: SERTRALINE HCL 50 MG TAB PO SCH (08:27)
[2017-01-16] MEDS: FLUTICASONE PROPIONATE NA SPR 16 GM BTL SCH ×2 (08:27→21:00)
[2017-01-16] MEDS: IPRATROPIUM BROMIDE/ALBUTEROL respimat INH INH SCH ×4 (08:27→21:28)
[2017-01-16] MEDS: CHOLECALCIFEROL 1000 INTER.UNIT TAB PO SCH (08:28)
[2017-01-16] MEDS ORDERED: EPOETIN ALFA 10,000 UNITS/ML VIAL IV. ONE (09:00)
[2017-01-16] MEDS: METOPROLOL TARTRATE 50 MG TAB PO SCH ×2 (09:00→21:29)
[2017-01-16 10:02] LABS: HEPATITIS B AB NEG
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
[2017-01-16] MEDS: SIMVASTATIN 40 MG TAB PO SCH (21:29)
[2017-01-17] VITALS (21 sets, daily range): BP systolic 102–135; BP diastolic 67–80; PULSE 87–117; TEMP 36.3–37.1; O2SAT 93–98
[2017-01-17] MEDS: ACETAMINOPHEN IV 1,000 MG in EMPTY BAG 0 ML IV SCH ×3 (02:15→18:40)
[2017-01-17] MEDS: IPRATROPIUM BROMIDE/ALBUTEROL respimat INH INH SCH ×4 (09:29→20:52)
[2017-01-17] MEDS: SERTRALINE HCL 50 MG TAB PO SCH (09:29)
[2017-01-17] MEDS: FLUTICASONE PROPIONATE NA SPR 16 GM BTL SCH ×2 (09:30→20:53)
[2017-01-17] MEDS: CHOLECALCIFEROL 1000 INTER.UNIT TAB PO SCH (09:30)
[2017-01-17] MEDS: METOPROLOL TARTRATE 50 MG TAB PO SCH ×2 (09:32→20:52)
--- NOTE | 2017-01-17 12:51 | PROGRESS NOTE ---
DATE: 01/17/2017 The patient was seen during dialysis. He denies having any problem during dialysis. No cramp, no low blood pressure. Dialysis catheter is working fine without any problem. He is complaining of slight itching around the catheter site but no pain or hematoma. PHYSICAL EXAMINATION: VITAL SIGNS: Blood pressure is 118/75, pulse rate 101 per minute and regular, 95% on room air. HEENT: Mucous membranes moist. NECK: Supple. No jugular venous distention. CHEST: Bilateral clear to auscultation. CARDIOVASCULAR: S1 and S2, regular. Soft systolic murmur heard. ABDOMEN: Soft, nontender. EXTREMITIES: Show no edema. LABORATORY TESTS: None are done for today. Labs from yesterday were reviewed and were unremarkable. Hemoglobin 8.6, platelet count 301. ASSESSMENT AND PLAN: Chronic kidney disease stage V with uremic symptoms; the patient has been newly started on chronic hemodialysis because of uremic symptoms, namely decreased appetite, fatigue, nausea and recent episode of vomiting. He had dialysis yesterday without any problem. He will have dialysis today. It has been ordered for 2 hours 30 minutes at 250 blood flow, no heparin. No fluid removal. He is tolerating it fine. Outpatient dialysis will be arranged tomorrow. [facility]
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
[2017-01-17] MEDS: SIMVASTATIN 40 MG TAB PO SCH (20:53)
[2017-01-18] VITALS (18 sets, daily range): BP systolic 86–127; BP diastolic 47–80; PULSE 83–120; TEMP 36.5–37; O2SAT 93
[2017-01-18] MEDS: ACETAMINOPHEN IV 1,000 MG in EMPTY BAG 0 ML IV SCH ×2 (02:18→09:54)
[2017-01-18] MEDS: IPRATROPIUM BROMIDE/ALBUTEROL respimat INH INH SCH ×2 (07:48→12:05)
[2017-01-18] MEDS: FLUTICASONE PROPIONATE NA SPR 16 GM BTL SCH (07:48)
[2017-01-18] MEDS: METOPROLOL TARTRATE 50 MG TAB PO SCH (07:49)
[2017-01-18] MEDS: CHOLECALCIFEROL 1000 INTER.UNIT TAB PO SCH (07:50)
[2017-01-18] MEDS: SERTRALINE HCL 50 MG TAB PO SCH (07:50)
[2017-01-18] MEDS: CALCITRIOL 0.25 MCG CAP PO SCH (07:50)
--- NOTE | 2017-01-18 12:21 | Progress Note ---
Medicine Progress Note Date & Time of Visit: Jan 18, 2017 at 12:21 . Subjective Tolerating hemodialysis. No chest pain. No nausea, vomiting. Ready to go home. . Objective Last 8 Hrs Date Time Temp Pulse Resp B/P (MAP) Pulse Ox O2 Delivery O2 Flow Rate FiO2 01/18/17 11:55 36.5 96 127/76 (93) 01/18/17 11:15 101 121/76 01/18/17 11:00 99 115/72 01/18/17 10:45 83 119/79 01/18/17 10:30 101 116/75 01/18/17 10:15 106 107/80 01/18/17 10:00 104 122/72 01/18/17 09:45 101 110/66 01/18/17 09:30 102 109/66 01/18/17 09:15 107 106/65 01/18/17 09:00 104 86/47 01/18/17 08:45 106 117/75 01/18/17 08:26 101 119/67 01/18/17 08:15 36.7 106 109/70 (83) 01/18/17 08:00 93 Room Air 01/18/17 07:12 37.0 92 18 112/75 (87) 93 Room Air Physical Exam: General- no distress Neck- no JVD Lungs- clear Heart- RRR Thorax- right internal jugular tunnelled catheter; no hematoma Abdomen- normal bowel sounds, soft, nontender Extremities- no pretibial edema or calf tenderness Neuro- alert . Assessment & Plan CKD V Admitted for vascular access and initiation of hemodialysis. Hemodialysis catheter placed 01/15 and hemodialysis initiated 01/16. Arrangements to be made for outpatient dialysis ANEMIA Hgb 9.3, 8.6. Normocytic. Probably secondary to his CKD. Management per Nephrology. HYPERTENSION Continue metoprolol. 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 SCD's. Ambulate. DISPOSITION Discharge to home. Primary care follow-up with SAILAJA Carvalho. Nephrology follow-up with Dr. Yarbrough. . Consultants: Nephrology Vascular Surgery . Procedures: cardiac monitoring placement right internal jugular tunnelled hemodialysis catheter hemodialysis . Current Inpatient Medications: Current Inpatient Medications Medications (Trade) Dose Ordered Sig/[place] Route Start Time Stop Time Status Last Admin Dose Admin Acetaminophen (Tylenol Tab) 650 mg Q4H PRN PO 01/14/17 15:00 02/13/17 14:59 01/15/17 20:55 325 MG Calcitriol (Rocaltrol Cap) 0.25 mcg MoWeFr@0900 PO 01/15/17 09:00 02/14/17 08:59 01/18/17 07:50 0.25 MCG Fluticasone Propionate (Flonase Nasal [place]) 2 sprays BID NA 01/14/17 21:00 02/13/17 20:59 01/15/17 07:33 2 SPRAYS Albuterol/ Ipratropium (Combivent Respimat Inh) 1 puffs QID INH 01/14/17 17:00 02/13/17 16:59 01/18/17 12:05 1 PUFFS Metoprolol Tartrate (Lopressor Tab) 50 mg BID PO 01/14/17 21:00 02/13/17 20:59 01/17/17 20:52 50 MG Sertraline HCl (Zoloft Tab) 50 mg QAM PO 01/15/17 09:00 02/14/17 08:59 01/18/17 07:50 50 MG Simvastatin (Zocor Tab) 40 mg QPM PO 01/14/17 21:00 02/13/17 20:59 01/17/17 20:53 40 MG Cholecalciferol (Vitamin D Tab) 3,000 inter.unit QAM PO 01/15/17 09:00 02/14/17 08:59 01/18/17 07:50 3,000 INTER.UNIT Promethazine HCl 12.5 mg/Sodium Chloride 50.5 ml @ 204 mls/hr Q6H PRN IV 01/14/17 15:45 02/13/17 15:44 Acetaminophen 1000 mg/Empty Bag 100 ml @ 400 mls/hr Q8H IV 01/15/17 02:15 02/14/17 02:14 01/18/17 02:18 400 MLS/HR Polyethylene (Miralax Powder Packet) 17 gm DAILY PRN PO 01/15/17 07:45 02/14/17 07:44 Diphenhydramine HCl (Benadryl Cap) 25 mg Q6H PRN PO 01/17/17 19:00 02/16/17 18:59
--- NOTE | 2017-01-18 12:26 | Discharge Instructions ---
Discharge Instructions Date of Service Jan 18, 2017. Admission Reason for Admission: kidney failure Discharge Discharge Diagnosis / Problem: kidney failure Discharge Goals Goal(s): Improve function, Improve disease control Activity Recommendations Activity Limitations: resume your previous activity . Instructions / Follow-Up Instructions / Follow-Up FOLLOW-UP APPOINTMENTS: NEPHROLOGY Dr. Galan / Dialysis Center 01/20/17 as directed PRIMARY CARE SAILAJA Carvalho MEDICATION CHANGES: No new medications at this time. OTHER INSTRUCTIONS: Seek medical attention if you have: * temperature above 101 * chest pain or trouble breathing * abdominal pain, nausea, vomiting * diarrhea, dark stools or bloody stools * swelling, pain, bleeding around dialysis catheter * any unanswered questions or concerns Call 911 if symptoms are severe. Call if you have any questions or problems. My cell # is [phone]. You can also reach a [facility] hospitalist on duty at [facility] 24 hours a day by calling [phone]. Please take good care of yourself. Walter Marrero . Current Hospital Diet Patient's current hospital diet: AHA Diet (Heart Healthy), Renal Diet, Low Sodium Diet (2gm Na) Discharge Diet Recommended Diet: AHA Diet (Heart Healthy), Renal Diet Fluid Restriction: 1500 ml (6 cups) Procedures Procedures Performed: Insertion of right internal jugular vein moreno yan localization of int jug vein, fluoro for positioning, conscious sedation (1938- 1956) Pending Studies Studies pending at discharge: no Medical Emergencies . Who to Call and When: Medical Emergencies: If at any time you feel your situation is an emergency, please call 911 immediately. . Non-Emergent Contact Non-Emergency issues call your: Primary Care Provider, Hospital Doctor, Perinatal Tech . . "Provider Documentation" section prepared by Walter Marrero. . VTE Core Measure Inpt VTE Proph given/why not?: SCD's
--- NOTE | 2017-01-19 05:06 | Discharge Summary ---
Discharge Summary Date of Service Jan 19, 2017. Discharge Summary Admission Date: Jan 14, 2017 at 14:12 Discharge Date: Jan 18, 2017 Discharge Disposition: Home Principal Diagnosis: end-stage kidney disease . Secondary Diagnoses/Problems: Chronic and Resolved Medical Problems: (1) Abdominal aortic aneurysm Status: Chronic (2) Anemia, chronic disease Status: Chronic (3) CKD (chronic kidney disease), stage IV Status: Chronic (4) Dyslipidemia Status: Chronic (5) Heparin induced thrombocytopenia Status: Chronic (6) HTN (hypertension) Status: Chronic (7) Thoracic aortic aneurysm Permanent Comment: CT 09/2016 - The proximal descending thoracic aorta measures 9.2 x 7.6 cm. It previously measured 7 x 5.8cm. The inferior portion of the aneurysm involving the mid descending thoracic aorta measures approximately 10.3 x 8.5 cm. It previously measured 9.3 x 6.4 cm. Status: Chronic (8) Thoracic Aortic Stent Graft Status: Chronic Surgical Problems: (1) H/O thoracic aortic aneurysm repair Permanent Comment: 07/30/2014- endovascular repair descending thoracic aortic; [facility] Status: Chronic (2) History of vasectomy Status: Chronic (3) S/P AAA repair Permanent Comment: 07/05/2006- open AAA repair with tube graft, suprarenal clamp , Dr. Aviles Status: Chronic (4) S/P tonsillectomy Status: Chronic . Procedures: cardiac monitoring placement right internal jugular tunnelled hemodialysis catheter hemodialysis . Consultations: Nephrology Vascular Surgery . Pending Studies/Follow-Up: hepatitis B core antibodies . Medication Reconciliation Continued Medications: Acetaminophen (Tylenol) 500 Mg Tab 1 TAB PO Q8 PRN for Headache for 3 Days, #10 TAB Aspirin Enteric Coated (Ecotrin Or Generic *) 81 Mg Ectab 81 MG PO QAM Calcitriol (Rocaltrol Cap) 0.25 Mcg Cap 1 CAP PO 3XWK for 30 Days, CAP 5 Refills MWF Cholecalciferol (Vitamin D3) 1,000 Unit Chw 3 TAB PO QAM Clopidogrel (Plavix) 75 Mg Tab 75 MG PO QAM on hold Fluticasone Propionate (Nasal) (Flonase Allergy Relief) 50 Mcg/Act Spr 2 SPRAYS NA BID Hydrocortisone (Topical) (Hydrocortisone) 2.5 % Lot 1 APPLN TOP BID for 10 Days, #60 ML Ipratropium-Albuterol (Combivent Respimat) 1 Aer Aer 1 PUFFS INH QID, INH Metoprolol Tartrate (Lopressor) (Lopressor) 100 Mg Tab 50 MG PO BID, TAB Sertraline (Zoloft) 100 Mg Tab 50 MG PO QAM, TAB Simvastatin (Zocor) 80 Mg Tab 40 MG PO QPM Triamcinolone Acetonide (Topic (Triamcinolone Acetonide) 0.5 % Oin 1 APPLN TOP BID PRN for prn Admission Information HPI (per Admitting provider): 76 year old male who presents to the hospital for direct admission by referral of Dr. Galan for initiation of dialysis. Patient has a long standing history of CKD. He had a large AAA repair done in 2014 with subsequent NICHOLAS from which he never recovered. He has been getting close to need dialysis. He has nephrotic range proteinuria with severe underlying vascular disease. Over the past month patient reports increasing weakness. He has a few falls from which he attributes to loosing his balance. No loss of consciousness. He reports episodes of mild confusion. He has had a very poor appetite and weight loss of 15 pounds. He has had a few episodes of vomiting. He denies hematemesis or coffee ground emesis. No abdominal pain or diarrhea. He denies chest pain and shortness of breath. No lower extremity edema. He denies fever and chills. He continues to make a small amount of urine. At the time of my exam, patient is resting in bed in no acute distress. . Physical Exam (per Admitting): General Appearance: no apparent distress Head: normocephalic Eyes: normal inspection ENT: hearing grossly normal Neck: supple, no JVD Respiratory/Chest: lungs clear, normal breath sounds, no respiratory distress Cardiovascular: regular rate, rhythm, no edema, normal peripheral pulses Abdomen/GI: normal bowel sounds, non tender, soft Extremities/Musculoskelatal: normal inspection, no calf tenderness Neurologic/Psych: no motor/sensory deficits, alert, normal mood/affect, oriented x 3 Skin: normal color, warm/dry Hospital Course CKD V Admitted for vascular access and initiation of hemodialysis. Hemodialysis catheter placed 01/15 and hemodialysis initiated 01/16. Arrangements to be made for outpatient dialysis ANEMIA Hgb 9.3, 8.6. Normocytic. Probably secondary to his CKD. Management per Nephrology. HYPERTENSION Continue metoprolol. 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 SCD's. Ambulate. DISPOSITION Discharge to home. Primary care follow-up with SAILAJA Carvalho. Nephrology follow-up with Dr. Yarbrough. . Total time spent on discharge = 35 min. This includes examination of the patient, discharge planning, medication reconciliation, and communication with other providers. . Discharge Instructions Date of Service Jan 18, 2017. Admission Reason for Admission: kidney failure Discharge Discharge Diagnosis / Problem: kidney failure Discharge Goals Goal(s): Improve function, Improve disease control Activity Recommendations Activity Limitations: resume your previous activity . Instructions / Follow-Up Instructions / Follow-Up FOLLOW-UP APPOINTMENTS: NEPHROLOGY Dr. Galan / Dialysis Center 01/20/17 as directed PRIMARY CARE SAILAJA Carvalho MEDICATION CHANGES: No new medications at this time. OTHER INSTRUCTIONS: Seek medical attention if you have: * temperature above 101 * chest pain or trouble breathing * abdominal pain, nausea, vomiting * diarrhea, dark stools or bloody stools * swelling, pain, bleeding around dialysis catheter * any unanswered questions or concerns Call 911 if symptoms are severe. Call if you have any questions or problems. My cell # is [phone]. You can also reach a [facility] hospitalist on duty at [facility] 24 hours a day by calling [phone]. Please take good care of yourself. Walter Marrero . Current Hospital Diet Patient's current hospital diet: AHA Diet (Heart Healthy), Renal Diet, Low Sodium Diet (2gm Na) Discharge Diet Recommended Diet: AHA Diet (Heart Healthy), Renal Diet Fluid Restriction: 1500 ml (6 cups) Procedures Procedures Performed: Insertion of right internal jugular vein permcath, usn localization of int jug vein, fluoro for positioning, conscious sedation (1938- 1956) Pending Studies Studies pending at discharge: no Medical Emergencies . Who to Call and When: Medical Emergencies: If at any time you feel your situation is an emergency, please call 911 immediately. . Non-Emergent Contact Non-Emergency issues call your: Primary Care Provider, Hospital Doctor, Student Success Counselor . . "Provider Documentation" section prepared by Walter Marrero. . VTE Core Measure Inpt VTE Proph given/why not?: SCD's Additional Copies To Kelli Santos C.R.N.P
== END 2017-01-18 14:29 | disposition home or self-care (01) | DRG 675 ==
LOC: C.2T 14:12 → ENRESERV 01-17 19:15 → C.MS2W 01-17 20:45
PROVIDERS: ADMIT Hospitalist; ATTEND Hospitalist
PROC: 02HV33Z Insertion of Infusion Device into Superior Vena Cava, Percutaneous Approach (ICD-10-PCS; principal; 2017-01-15 15:15)
PROC: 0JH63XZ Insertion of Tunneled Vascular Access Device into Chest Subcutaneous Tissue and Fascia, Percutaneous Approach (ICD-10-PCS; principal; 2017-01-15 15:15)
DX: N18.6 End stage renal disease (principal); D63.1 Anemia in chronic kidney disease; I12.0 Hypertensive chronic kidney disease with stage 5 chronic kidney disease or end stage renal disease; E78.5 Hyperlipidemia, unspecified; I71.4 Abdominal aortic aneurysm, without rupture; J44.9 Chronic obstructive pulmonary disease, unspecified; Z66 Do not resuscitate; Z79.02 Long term (current) use of antithrombotics/antiplatelets; Z79.82 Long term (current) use of aspirin; Z79.899 Other long term (current) drug therapy; Z87.891 Personal history of nicotine dependence

== ENCOUNTER → 2017-02-25 | Outpatient (CLI) | payer OTHER ==
[~2017-02-25] MED LIST changes: +ACET-1256 PO; -AMOX250S5 PO; +CALC0.2510 PO; +FLUT0.15; +HYDR2.5L TOP; -KETO0.5S33 OPR; -PRED1SUS3 OPR; +TRIA0.5O TOP
== END | disposition home or self-care (01) ==
LOC: C.LABPVFM 10:35
PROVIDERS: ATTEND Nurse Practitioner Family
DX: R35.0 Frequency of micturition (principal)

== ENCOUNTER → 2017-06-15 | Day surgery (SDC) | payer OTHER ==
[~2017-06-15] VITALS: Ht 167.6 cm; Wt 56.7 kg
[~2017-06-15] MED LIST changes: +ATROPINE SULFATE 0.1 MG/ML 5ML SYR IV PRN; +CEFAZOLIN 1000MG IV PUSH 5 ML IV SCH; +D5W AND 1/4NSS 1000 ML IV SCH; +EpHEDrine SULFATE INJ 50 MG/ML AMP IV PRN; +FENTANYL CITRATE INJ 50 MCG/1 ML 2 ML VIAL IV PRN; +FENTANYL CITRATE INJ 50 MCG/1 ML 2 ML VIAL ONE; +LIDOCAINE HCL 1% 20 ML VIAL INJ ONE; +MIDAZOLAM HCL 1 MG/ML 2ML VIAL ONE; +ONDANSETRON INJ 2 MG/ML 2 ML VIAL IV PRN; +PATIENT'S HEIGHT AND/OR WEIGHT NEEDED SCH; +PROPOFOL IV EMULSION 10 MG/ML 20 ML VIAL IV ONE
--- NOTE | 2017-06-15 05:52 | History and Physical ---
History & Physical Date of Service Jun 15, 2017. History & Physical Chief Complaint End stage renal disease on dialysis with a malfunctioning permcath History of Present Illness The patient is a 76 year old male who has had worsening kidney function and on dialysis. Permcath was placed. He is having poor runs through the permcath. Denies fever or chills. Allergies Coded Allergies: Heparin (Unverified Allergy, Unknown, unsure, 02/24/16) Sulfa Antibiotics (Verified Allergy, Unknown, "SULFA DRUGS": UNKNOWN, 02/23) Home Medications Scheduled Aspirin Enteric Coated (Ecotrin Or Generic *), 81 MG PO QAM Calcitriol (Rocaltrol Cap), 1 CAP PO 3XWK Cholecalciferol (Vitamin D3), 3 TAB PO QAM Clopidogrel (Plavix), 75 MG PO QAM Fluticasone Propionate (Nasal) (Flonase Allergy Relief), 2 SPRAYS NA BID Hydrocortisone (Topical) (Hydrocortisone), 1 APPLN TOP BID Ipratropium-Albuterol (Combivent Respimat), 1 PUFFS INH QID Metoprolol Tartrate (Lopressor) (Lopressor), 50 MG PO BID Sertraline (Zoloft), 50 MG PO QAM Simvastatin (Zocor), 40 MG PO QPM Scheduled PRN Acetaminophen (Tylenol), 1 TAB PO Q8 PRN for Headache Triamcinolone Acetonide (Topic (Triamcinolone Acetonide), 1 APPLN TOP BID PRN for prn Problem List Medical Problems: (1) Abdom Aortic Aneurysm (2) Abdominal aortic aneurysm (3) Anemia, chronic disease (4) Chronic Obstructive Pulmonary Disease, Unspecified (5) CKD (chronic kidney disease), stage IV (6) Coronary Atherosclerosis Of [place] Coronary Vessel (7) Diaphragmatic Hernia (8) Dyslipidemia (9) Emphysema Nec (10) Esophageal Reflux (11) Esophageal Stricture (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 (13) HTN (hypertension) (14) Hypertension Nos (15) 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/Unsp Chr Kdny (16) Hypertrophy (Benign) Of Prostate W/O Urinary Obst & Oth Luts (17) Hypothyroidism Nos (18) Mixed Hyperlipidemia (19) Thoracic aortic aneurysm (20) Thoracic Aortic Embolism (21) Thoracic Aortic Stent Graft (22) Thoracoabdominal Aortic Aneurysm, Without Rupture (23) Tobacco Use Disorder (24) Vitamin D Deficiency, Unspecified Surgical Problems: (1) Cataract Extraction Status, Right Eye (2) H/O thoracic aortic aneurysm repair (3) History of vasectomy (4) Peripheral Vascular Angioplasty Status W Implants And Grafts (5) S/P AAA repair (6) S/P tonsillectomy Surgical / Medical History Hx Cardiac Surgery: Yes (AAA REPAIR X3 WITH STENT) Hx Abdominal Surgery: No Hx Cancer Surgery: No Hx Thoracic Surgery: No Hx Orthopedic: No Hx Urinary Tract Surgery: Yes (VASECTOMY) Past Medical/Surgical History: Heart Disease, High Cholesterol Family History FH: cancer FH: hypertension Social History Smoking Status: Former Smoker Hx Tobacco Use In Past Year?: No (2.5 years ago) Hx Alcohol Use - Type & Amnt: No Hx Substance Use -Type & Amnt: No Review of Systems Respiratory: No cough, No cyanosis, No VALENTIN, No hemoptysis, No orthopnea, No PND , No short of breath, No sputum production, No stridor, No wheezing, No dyspnea , No problem reported Cardiovascular: No chest pain, No chest tightness, No chest pressure, No palpitations, No syncope, No diaphoresis, No edema, No intermittent claudication , No orthopnea, No cyanosis, No mumur, No lightheadedness, No paroxysmal nocturnal dyspnea, No problem reported Gastrointestinal: No abdominal pain, No constipation, No diarrhea, No nausea, No vomiting, No anorexia, No appetite changes, No belching, No flatulence, No food intolerance, No hematemesis, No hemorrhoids, No hematochezia, No stool changes, No heartburn, No indigestion, No dysphagia, No rectal bleeding, No problem reported Physical Exam Constitutional: General Apperance: heathly-appearing, well-nourished, well-developed Level of Distress: NAD Ambulation: ambulating normally Psychiatric: Mental Status: active & alert Orientation: oriented except where noted Memory: recent memory normal, remote memory normal Lungs: Auscultation: breath sounds normal Cardiovascular: Heart Auscultation: RRR Peripheral Pulses: Radial Pulse: normal on the left, normal on the right Femoral Pulse: normal on the left, normal on the right Abdomen: Inspection & Palpation: soft Musculoskeletal: normal Extremities: Upper Right: no cyanosis, no edema, no varicosities, no palpable cord, no clubbing, no ulcers, no mottling Upper Left: no cyanosis, no edema, no palpable cord, no clubbing, no ulcers , no mottling Lower Right: no cyanosis, no edema, no varicosities, no palpable cord, no clubbing, no ulcers, no mottling Lower Left: no cyanosis, no edema, no varicosities, no palpable cord, no clubbing, no ulcers, no mottling Neurologic: Cranial Nerves: grossly intact Assessment and Plan Imp: End stage renal disease on dialysis Malfunctioning permcath Plan: Patient is here for an exchange of a permcath. I have discussed the risks options and benefits of the procedure with the patient. The patient understands the risks options and benefits and agrees to the procedure.
[2017-06-15 08:41] VITALS: Ht 167.6 cm; Wt 56.7 kg
[2017-06-15 08:51] VITALS: BP 178/90; PULSE 89; TEMP 36.5; O2SAT 95
--- NOTE | 2017-06-15 11:33 | History & Physical Bridge Note ---
H&P Re-Evaluation Bridge Note: I have examined the patient, reviewed the History & Physical and in the interval since the performance of the History & Physical I have noted the following changes of clinical significance: No changes noted
--- NOTE | 2017-06-15 12:33 | [facility] Operative Report ---
Operative Report Operative Date Jun 15, 2017. 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 Patient is here for exchange of the permcath. I have discussed the risks options and benefits of the procedure with the patient. The patient understands the risks options and benefits and agrees to the procedure. Description of Procedure Patient was takent to the angio suite and placed in the supine position. The right side of the neck, catheter and chest wall were prepped and draped in a sterile manner. Local anesthesia was then administered to the appropriate areas. A guidewire was then passed centrally under fluoroscopic imaging through the old permcath. The old permcath was removed after freeing up the dacron cuff of the permcath using blunt and sharp dissection. A new 19 cm permcath was inserted without difficulty. The catheter was sutured in placed. Both ports aspirated and flushed easily and were then packed with heparin. A sterile dressing was applied to the catheter. The patient left the angio suite in good condition and tolerated the procedure well. I attest to the content of the Intraoperative Record and any orders documented therein. Any exceptions are noted below.
--- NOTE | 2017-06-15 12:37 | Discharge Instructions ---
Discharge Instructions Date of Service Jun 15, 2017. Visit Reason for Visit: Malfunctioning Permcath Discharge Discharge Diagnosis / Problem: Malfunctioning permcath Discharge Goals Goal(s): Therapeutic intervention Activity Recommendations Activity Limitations: per Instructions/Follow-up section Anesthesia . Post Anesthesia Instructions: If you have had General Anesthesia or IV Sedation: * Do not drive today. * Resume driving when surgeon permits. * Do not make important decisions or sign legal documents today. * Call surgeon for: 1. Temperature elevations greater than 101 degrees F. 2. Uncontrollable pain. 3. Excessive bleeding. 4. Persistent nausea and vomiting. 5. Medication intolerance (nausea, vomiting or rash). * For nausea and vomiting use only clear liquids such as: tea, soda, bouillon until nausea subsides, then gradually increase diet as tolerated. * If you have any concerns or questions, call your surgeon's office. If physician is unavailable and it is an emergency, call 911 or go to the nearest emergency room. . Instructions / Follow-Up Instructions / Follow-Up Call [phone] with any questions or concerns. SPECIAL CARE INSTRUCTIONS: Medications: * Continue to take your medications as directed. If you have been given a prescription for Plavix, please fill it immediately and take as directed. Incision Care: * Your puncture site may have some bruising and minor swelling for about one week. * You will have a small dressing covering your puncture site. You may remove the dressing after 24 hours and shower. You may let the warm soapy water run over it, but be sure to dry the puncture site well and keep it dry. * DO NOT IMMERSE THE INCISION IN A TUB/POOL/etc. UNTIL HEALED. * Puncture sites should be kept covered with a band-aid until it begins to heal. Restrictions: * Depending on whether you leg or arm was punctured to access the arteries, you will be required to lay flat, hold your arm still, or both, for about 4 hours after the procedure to prevent bleeding. * Limit your activity for the first 48 hours. You may walk and go up and down steps. Avoid excessive bending or movement at the puncture site. Possible Complications: * Excessive Swelling - after blood flow is improved you may notice increased swelling in the lower legs. This is a normal response. This usually depends on the amount of blockages in the leg, how long they have been there prior to your procedure and how much blood flow was restored. Elevating your legs will help to improve this. Please notify our office ([phone] ) if the swelling does not go away after lying in bed overnight. * Infection/Drainage/Bleeding - Drainage or bleeding from the puncture site should be minimal. If you have excessive bleeding or drainage, call our office ([phone]) right away. * Pain - You may experience some mild pain or soreness at your puncture site. If your pain does not improve, please contact our office ([phone]). Call your doctor and seek emergent treatment if you develop: * Temperature above 101 degrees * Any fever or chills * Any redness or purulent drainage from the puncture site * Any new dusky/blue colored toes or feet with coolness or sharp or aching pain. SKIN IRRITATION: * You may experience some redness and/or swelling in the area where radiation was administered. If any skin irritation occurs, please contact your family physician. FOLLOW UP VISIT: Keep any scheduled doctor appointments. Diet Recommendations Recommended Home Diet: resume previous diet Procedures Procedures Performed: Perm Cath Exchange Pending Studies Studies pending at discharge: no Medical Emergencies . Who to Call and When: Medical Emergencies: If at any time you feel your situation is an emergency, please call 911 immediately. . Non-Emergent Contact Non-Emergency issues call your: Surgeon . . "Provider Documentation" section prepared by Serafin Farrell. .
[2017-06-15 12:42] VITALS: BP 117/80; PULSE 92; TEMP 36.9; O2SAT 94
[2017-06-15 13:05] VITALS: BP 132/85; PULSE 92; O2SAT 94
[2017-06-15 13:31] VITALS: BP 139/85; PULSE 91; O2SAT 95
--- NOTE | 2017-06-15 14:46 | Anesthesiology Progress Note ---
Anesthesia Post Op Note Date & Time Jun 15, 2017 at 14:46 Vital Signs Pain Intensity: 0 Vital Signs Past 12 Hours Date Time Temp Pulse Resp B/P (MAP) Pulse Ox O2 Delivery O2 Flow Rate FiO2 06/15/17 13:31 91 18 139/85 95 Room Air 06/15/17 13:05 92 18 132/85 94 Room Air 06/15/17 12:42 36.9 92 18 117/80 94 Room Air 06/15/17 08:51 36.5 89 18 178/90 (119) 95 Room Air Notes Mental Status: alert / awake / arousable, participated in evaluation Pt Amnestic to Procedure: Yes Nausea / Vomiting: adequately controlled Pain: adequately controlled Airway Patency, RR, SpO2: stable & adequate BP & HR: stable & adequate Hydration State: stable & adequate Anesthetic Complications: no major complications apparent
== END | disposition home or self-care (01) ==
LOC: C.ACU 08:27
PROVIDERS: ATTEND Surgery Vascular Surgery
DX: T82.49XA Other complication of vascular dialysis catheter, initial encounter (principal); Y83.8 Other surgical procedures as the cause of abnormal reaction of the patient, or of later complication, without mention of misadventure at the time of the procedure; I12.0 Hypertensive chronic kidney disease with stage 5 chronic kidney disease or end stage renal disease; J44.9 Chronic obstructive pulmonary disease, unspecified; N18.6 End stage renal disease; Z88.2 Allergy status to sulfonamides

== ENCOUNTER → 2017-08-13 | Day surgery (SDC) | payer OTHER ==
[~2017-08-13] VITALS: Ht 170.2 cm; Wt 57.0 kg
[~2017-08-13] MED LIST changes: -ASPEC81 PO; +ASPI81TA21 PO; -ATROPINE SULFATE 0.1 MG/ML 5ML SYR IV PRN; -CALC0.2510 PO; -CEFAZOLIN 1000MG IV PUSH 5 ML IV SCH; +CEFAZOLIN 1000MG IV PUSH 7.5 ML IV SCH; +D5W AND 1/4NSS 1,000 ML IV SCH; -D5W AND 1/4NSS 1000 ML IV SCH; -EpHEDrine SULFATE INJ 50 MG/ML AMP IV PRN; +FENTANYL CITRATE INJ 50 MCG/1 ML 2 ML VIAL IV ONE; -FENTANYL CITRATE INJ 50 MCG/1 ML 2 ML VIAL IV PRN; +FINA5TAB PO; -FLUT0.15; +HEPARIN SOD (PORCINE) 5000 UNIT/ML 1 ML VIAL IV ONE; +HEPARIN SOD (PORCINE) 5000 UNIT/ML 1 ML VIAL ONE; -LIDOCAINE HCL 1% 20 ML VIAL INJ ONE; +LIDOCAINE HCL 1% 20 ML VIAL SQ ONE; +MIDAZOLAM HCL 1 MG/ML 2ML VIAL IV ONE; -ONDANSETRON INJ 2 MG/ML 2 ML VIAL IV PRN; -PATIENT'S HEIGHT AND/OR WEIGHT NEEDED SCH; -PROPOFOL IV EMULSION 10 MG/ML 20 ML VIAL IV ONE; -TRIA0.5O TOP
[2017-08-13 06:48] VITALS: BP 156/86; PULSE 82; TEMP 36.4; O2SAT 98; Ht 170.2 cm; Wt 57.0 kg
--- NOTE | 2017-08-13 06:57 | History and Physical ---
History & Physical Date of Service Aug 13, 2017. History & Physical Chief Complaint End stage renal disease on dialysis with a malfunctioning permcath History of Present Illness The patient is a 76 year old male who has had worsening kidney function and on dialysis. Permcath was placed. He is having poor runs through the permcath. Denies fever or chills. Allergies Coded Allergies: Heparin (Unverified Allergy, Unknown, unsure, 02/24/16) Sulfa Antibiotics (Verified Allergy, Unknown, "SULFA DRUGS": UNKNOWN, 02/23) Home Medications Scheduled Aspirin Enteric Coated (Ecotrin Or Generic *), 81 MG PO QAM Calcitriol (Rocaltrol Cap), 1 CAP PO 3XWK Cholecalciferol (Vitamin D3), 3 TAB PO QAM Clopidogrel (Plavix), 75 MG PO QAM Fluticasone Propionate (Nasal) (Flonase Allergy Relief), 2 SPRAYS NA BID Hydrocortisone (Topical) (Hydrocortisone), 1 APPLN TOP BID Ipratropium-Albuterol (Combivent Respimat), 1 PUFFS INH QID Metoprolol Tartrate (Lopressor) (Lopressor), 50 MG PO BID Sertraline (Zoloft), 50 MG PO QAM Simvastatin (Zocor), 40 MG PO QPM Scheduled PRN Acetaminophen (Tylenol), 1 TAB PO Q8 PRN for Headache Triamcinolone Acetonide (Topic (Triamcinolone Acetonide), 1 APPLN TOP BID PRN for prn Problem List Medical Problems: (1) Abdom Aortic Aneurysm (2) Abdominal aortic aneurysm (3) Anemia, chronic disease (4) Chronic Obstructive Pulmonary Disease, Unspecified (5) CKD (chronic kidney disease), stage IV (6) Coronary Atherosclerosis Of [place] Coronary Vessel (7) Diaphragmatic Hernia (8) Dyslipidemia (9) Emphysema Nec (10) Esophageal Reflux (11) Esophageal Stricture (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 (13) HTN (hypertension) (14) Hypertension Nos (15) 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/Unsp Chr Kdny (16) Hypertrophy (Benign) Of Prostate W/O Urinary Obst & Oth Luts (17) Hypothyroidism Nos (18) Mixed Hyperlipidemia (19) Thoracic aortic aneurysm (20) Thoracic Aortic Embolism (21) Thoracic Aortic Stent Graft (22) Thoracoabdominal Aortic Aneurysm, Without Rupture (23) Tobacco Use Disorder (24) Vitamin D Deficiency, Unspecified Surgical Problems: (1) Cataract Extraction Status, Right Eye (2) H/O thoracic aortic aneurysm repair (3) History of vasectomy (4) Peripheral Vascular Angioplasty Status W Implants And Grafts (5) S/P AAA repair (6) S/P tonsillectomy Surgical / Medical History Hx Cardiac Surgery: Yes (AAA REPAIR X3 WITH STENT) Hx Abdominal Surgery: No Hx Cancer Surgery: No Hx Thoracic Surgery: No Hx Orthopedic: No Hx Urinary Tract Surgery: Yes (VASECTOMY) Past Medical/Surgical History: Heart Disease, High Cholesterol Family History FH: cancer FH: hypertension Social History Smoking Status: Former Smoker Hx Tobacco Use In Past Year?: No (2.5 years ago) Hx Alcohol Use - Type & Amnt: No Hx Substance Use -Type & Amnt: No Review of Systems Respiratory: No cough, No cyanosis, No VALENTIN, No hemoptysis, No orthopnea, No PND , No short of breath, No sputum production, No stridor, No wheezing, No dyspnea , No problem reported Cardiovascular: No chest pain, No chest tightness, No chest pressure, No palpitations, No syncope, No diaphoresis, No edema, No intermittent claudication , No orthopnea, No cyanosis, No mumur, No lightheadedness, No paroxysmal nocturnal dyspnea, No problem reported Gastrointestinal: No abdominal pain, No constipation, No diarrhea, No nausea, No vomiting, No anorexia, No appetite changes, No belching, No flatulence, No food intolerance, No hematemesis, No hemorrhoids, No hematochezia, No stool changes, No heartburn, No indigestion, No dysphagia, No rectal bleeding, No problem reported Physical Exam Constitutional: General Apperance: heathly-appearing, well-nourished, well-developed Level of Distress: NAD Ambulation: ambulating normally Psychiatric: Mental Status: active & alert Orientation: oriented except where noted Memory: recent memory normal, remote memory normal Lungs: Auscultation: breath sounds normal Cardiovascular: Heart Auscultation: RRR Peripheral Pulses: Radial Pulse: normal on the left, normal on the right Femoral Pulse: normal on the left, normal on the right Abdomen: Inspection & Palpation: soft Musculoskeletal: normal Extremities: Upper Right: no cyanosis, no edema, no varicosities, no palpable cord, no clubbing, no ulcers, no mottling Upper Left: no cyanosis, no edema, no palpable cord, no clubbing, no ulcers , no mottling Lower Right: no cyanosis, no edema, no varicosities, no palpable cord, no clubbing, no ulcers, no mottling Lower Left: no cyanosis, no edema, no varicosities, no palpable cord, no clubbing, no ulcers, no mottling Neurologic: Cranial Nerves: grossly intact Assessment and Plan Imp: End stage renal disease on dialysis Malfunctioning permcath Plan: Patient is here for an exchange of a permcath. I have discussed the risks options and benefits of the procedure with the patient. The patient understands the risks options and benefits and agrees to the procedure.
--- NOTE | 2017-08-13 07:46 | Pre Sedation Assessment ---
Pre Sedation Assessment General Date of Sedation: Aug 13, 2017. Vital Signs Past 12 Hours Date Time Temp Pulse Resp B/P (MAP) Pulse Ox O2 Delivery O2 Flow Rate FiO2 08/13/17 06:48 36.4 82 20 156/86 (109) 98 Room Air Review Cardiovascular: regular rate, rhythm Lungs: lungs clear Pre-Sedation Airway Assessment Smoking Status: Former Smoker Hx of Sleep Apnea: No Short Thick Neck: No Thyro-mental Distance: > 3 Finger Breadths Oral Cavity: WNL Mallampati Classification: Class I ASA Classification: Class III NPO Status Date of Last Intake of Fluids: Aug 13, 2017 Time of Last Intake of Fluids: 0700 Date of Last Intake of Solids: Aug 12, 2017 Time of Last Intake of Solids: 1800 Procedure Planning Contraindications for Sedation: None Current Medications Reviewed: Yes Notes The planned sedation has been discussed with the patient. Informed Consent was obtained. I have identified the patient, determined the appropriateness of sedation and have assessed the patient immediately prior to the procedure. All medicine(s) and interventions are by my order.
--- NOTE | 2017-08-13 08:28 | [facility] Post Operative Brief Note ---
Immediate Operative Summary Operative Date Aug 13, 2017. Pre-Operative Diagnosis Malfunctioning Perm Catheter Post-Operative Diagnosis Malfunctioning Perm Catheter Procedure(s) Performed Exchange Of Perm Catheter, Moderate Sedation from 814 - 825, Fluoro Surgeon Dr. Farrell Branch Controller Surgeon(s) Dr. Del Real Estimated Blood Loss 2 Findings Consistent with Post-Op Diagnosis Specimens Explant perm catheter Drains None Anesthesia Type IV Sedat Cons RN Only Complication(s) none Disposition Accompanied Pt To Recover: no Disposition:
--- NOTE | 2017-08-13 08:31 | Discharge Instructions ---
Discharge Instructions Date of Service Aug 13, 2017. Visit Reason for Visit: End Stage Renal Disease, Malfunctioning Permcath Discharge Discharge Diagnosis / Problem: Malfunctioning permcath Discharge Goals Goal(s): Therapeutic intervention Activity Recommendations Activity Limitations: resume your previous activity Anesthesia . Post Anesthesia Instructions: If you have had General Anesthesia or IV Sedation: * Do not drive today. * Resume driving when surgeon permits. * Do not make important decisions or sign legal documents today. * Call surgeon for: 1. Temperature elevations greater than 101 degrees F. 2. Uncontrollable pain. 3. Excessive bleeding. 4. Persistent nausea and vomiting. 5. Medication intolerance (nausea, vomiting or rash). * For nausea and vomiting use only clear liquids such as: tea, soda, bouillon until nausea subsides, then gradually increase diet as tolerated. * If you have any concerns or questions, call your surgeon's office. If physician is unavailable and it is an emergency, call 911 or go to the nearest emergency room. . Instructions / Follow-Up Instructions / Follow-Up Call [phone] with any questions or concerns. May use permcath for dialysis. SPECIAL CARE INSTRUCTIONS: Medications: * Continue to take your medications as directed. If you have been given a prescription for Plavix, please fill it immediately and take as directed. Incision Care: * Your puncture site may have some bruising and minor swelling for about one week. * You will have a small dressing covering your puncture site. You may remove the dressing after 24 hours and shower. You may let the warm soapy water run over it, but be sure to dry the puncture site well and keep it dry. * DO NOT IMMERSE THE INCISION IN A TUB/POOL/etc. UNTIL HEALED. * Puncture sites should be kept covered with a band-aid until it begins to heal. Restrictions: * Depending on whether you leg or arm was punctured to access the arteries, you will be required to lay flat, hold your arm still, or both, for about 4 hours after the procedure to prevent bleeding. * Limit your activity for the first 48 hours. You may walk and go up and down steps. Avoid excessive bending or movement at the puncture site. Possible Complications: * Excessive Swelling - after blood flow is improved you may notice increased swelling in the lower legs. This is a normal response. This usually depends on the amount of blockages in the leg, how long they have been there prior to your procedure and how much blood flow was restored. Elevating your legs will help to improve this. Please notify our office ([phone] ) if the swelling does not go away after lying in bed overnight. * Infection/Drainage/Bleeding - Drainage or bleeding from the puncture site should be minimal. If you have excessive bleeding or drainage, call our office ([phone]) right away. * Pain - You may experience some mild pain or soreness at your puncture site. If your pain does not improve, please contact our office ([phone]). Call your doctor and seek emergent treatment if you develop: * Temperature above 101 degrees * Any fever or chills * Any redness or purulent drainage from the puncture site * Any new dusky/blue colored toes or feet with coolness or sharp or aching pain. SKIN IRRITATION: * You may experience some redness and/or swelling in the area where radiation was administered. If any skin irritation occurs, please contact your family physician. FOLLOW UP VISIT: Keep any scheduled doctor appointments. Diet Recommendations Recommended Home Diet: resume previous diet Procedures Procedures Performed: Exchange Of Perm Catheter, Moderate Sedation from 814 - 825, Fluoro Pending Studies Studies pending at discharge: no Medical Emergencies . Who to Call and When: Medical Emergencies: If at any time you feel your situation is an emergency, please call 911 immediately. . Non-Emergent Contact Non-Emergency issues call your: Surgeon . . "Provider Documentation" section prepared by Serafin Farrell. .
--- NOTE | 2017-08-13 08:38 | [facility] Operative Report ---
Operative Report Operative Date Aug 13, 2017. Pre-Operative Diagnosis Malfunctioning Perm Catheter Post-Operative Diagnosis Malfunctioning Perm Catheter Procedure(s) Performed Exchange Of Perm Catheter, Moderate Sedation from 814 - 825, Fluoro Surgeon Dr. Farrell Citizen Participation Specialist Surgeon(s) Dr. Del Real Estimated Blood Loss 2 Specimens Explant perm catheter Drains None Anesthesia Type Local Complication(s) none Disposition no Indications Mr. Adams is a 77 y/o male with ESRD on HD who presents will malfunctioning perm cath. He was advised of the risk and benefits of exchange and agreed to undergo above procedure Description of Procedure The patient was taken to the angio suite and placed in the supine position. The right side of the neck, chest wall and catheter were prepped and draped in a sterile manner. Local anesthesia was then accomplished. Using sharp and blunt dissection, the cuff of the permcath was freed up from the surrounding fibrous tissue. A wire was inserted under flouroscopy through the perm cath. The permcath and cuff were completely removed over the wire. A new 19 cm perm cath was replaced over the wire. Placement confirmed by flouroscopy. The ports were flushed. They flused and shan back easily. The were locked with heparin. the perm cath was sutured in placed. The patient was then transferred the post- operative area. I, Dr. Farrell was present and scrubbed for the entire procedure. I attest to the content of the Intraoperative Record and any orders documented therein. Any exceptions are noted below.
--- NOTE | 2017-08-13 08:38 | Post Sedation Assessment ---
Post Sedation Assessment General Date of Sedation Aug 13, 2017. Vital Signs: Vital Signs Past 12 Hours Date Time Temp Pulse Resp B/P (MAP) Pulse Ox O2 Delivery O2 Flow Rate FiO2 08/13/17 08:35 80 16 117/73 94 Room Air 08/13/17 08:30 81 16 102/60 94 Room Air 08/13/17 08:25 72 16 112/69 100 Oxymask 4 08/13/17 08:20 74 16 100 Oxymask 4 08/13/17 08:15 79 16 150/84 100 Oxymask 4 08/13/17 08:10 72 16 153/88 100 Oxymask 4 08/13/17 06:48 36.4 82 20 156/86 (109) 98 Room Air Post Procedure Recovery Score Activity: (2) Moves 4 extremities * Respiration: (2) Deep breath/cough Circulation: (1) +/-20-49% PreAnes Marisa Consciousness: (2) Fully Awake Oxygen Saturation: (2) > 92% On Room Air Post Anesthesia Score: 9 Discharge Sedation Level of Care: Fast Track Phase II Post Sedation Plan On clinical assessment, the patient appears to have tolerated the sedation without complications. Patient is recovering as anticipated. Patient will continue to be monitored by nursing and may be discharged when sedation discharge criteria are met per below protocol. Upon Completions of procedure and additional 15 minutes continue every 5 minute vital signs and the P.A.R. score; then discharge to a Phase I or Fast Track to Phase II per the following guidelines: * Discharge Patient to appropriate Phase II area if PAR is 8 or greater or return to pre- procedure baseline. The post - procedure orders will be as directed. * If PAR score is less than 8 or not return to pre-procedure baseline then patient will follow Phase I monitoring till PAR is reached for Phase II. The Phase I may be done in procedure room or may call to secure a Phase I area. * If naloxone or flumazenil are used for reversal, hold in Phase I for an additional 60 -120 minutes before discharge to Phase II. Please call the Sedation Physician to re-evaluate and complete post-note for discharge to Phase II area. Do NOT discharge from procedure sedation or Phase 1 until post- sedation evaluation note is complete by procedure /sedation MD Sedation Discharge Instructions to be given to the patient at discharge to home.
[2017-08-13 08:50] VITALS: BP 137/77; PULSE 78; TEMP 36.9; O2SAT 93
[2017-08-13 09:05] VITALS: BP 132/76; PULSE 77; TEMP 36.3; O2SAT 94
[2017-08-13 09:20] VITALS: BP 134/84; PULSE 78; TEMP 36.4; O2SAT 94
[2017-08-13 09:50] VITALS: BP 122/80; PULSE 80; TEMP 36.5; O2SAT 95
== END | disposition home or self-care (01) ==
LOC: C.ACU 06:15
PROVIDERS: ATTEND Surgery Vascular Surgery
DX: T82.49XA Other complication of vascular dialysis catheter, initial encounter (principal); Y83.8 Other surgical procedures as the cause of abnormal reaction of the patient, or of later complication, without mention of misadventure at the time of the procedure; I12.0 Hypertensive chronic kidney disease with stage 5 chronic kidney disease or end stage renal disease; N18.6 End stage renal disease; D63.8 Anemia in other chronic diseases classified elsewhere; J44.9 Chronic obstructive pulmonary disease, unspecified; I25.10 Atherosclerotic heart disease of native coronary artery without angina pectoris; E78.5 Hyperlipidemia, unspecified; K21.9 Gastro-esophageal reflux disease without esophagitis; I12.9 Hypertensive chronic kidney disease with stage 1 through stage 4 chronic kidney disease, or unspecified chronic kidney disease; N40.0 Benign prostatic hyperplasia without lower urinary tract symptoms; E03.9 Hypothyroidism, unspecified; E78.2 Mixed hyperlipidemia; E55.9 Vitamin D deficiency, unspecified; Z88.2 Allergy status to sulfonamides; Z88.8 Allergy status to other drugs, medicaments and biological substances; Z87.891 Personal history of nicotine dependence; Z79.82 Long term (current) use of aspirin; Z79.899 Other long term (current) drug therapy; Z99.2 Dependence on renal dialysis

== ENCOUNTER → 2017-08-17 | Day surgery (SDC) | payer OTHER ==
--- NOTE | 2017-08-05 10:25 | PAT Medication Instructions ---
Service Date Aug 05, 2017. Current Home Medication List Acetaminophen (Tylenol), 1 TAB PO Q8 PRN for Headache Aspirin Enteric Coated (Ecotrin Or Generic), 81 MG PO QAM Cholecalciferol (Vitamin D3), 3 TAB PO QAM Clopidogrel (Plavix), 75 MG PO QAM Finasteride (Proscar), 5 MG PO QAM Hydrocortisone (Topical) (Hydrocortisone), 1 APPLN TOP BID PRN for skin irritation Ipratropium-Albuterol (Combivent Respimat), 1 PUFFS INH BID PRN for SOB/Wheezing Metoprolol Tartrate (Lopressor) (Lopressor), 50 MG PO BID Sertraline (Zoloft), 50 MG PO QAM Simvastatin (Zocor), 40 MG PO QPM Medication Instructions For Your Scheduled Surgery -Contact your surgeon for instructions for: Aspirin Enteric Coated (Ecotrin Or Generic), 81 MG PO QAM Clopidogrel (Plavix), 75 MG PO QAM - Hold the following medications 24 hours prior to surgery: Hydrocortisone (Topical) (Hydrocortisone), 1 APPLN TOP BID PRN for skin irritation - Hold the following medications the morning of surgery: Cholecalciferol (Vitamin D3), 3 TAB PO QAM - Take the following medications the morning of surgery with a sip of water: Acetaminophen (Tylenol), 1 TAB PO Q8 PRN for Headache (if needed, cam be takne up to four hours before surgery) Finasteride (Proscar), 5 MG PO QAM Ipratropium-Albuterol (Combivent Respimat), 1 PUFFS INH BID PRN for SOB/ Wheezing (if needed) Metoprolol Tartrate (Lopressor) (Lopressor), 50 MG PO BID Sertraline (Zoloft), 50 MG PO QAM - Take the following medications as scheduled the night before surgery: Acetaminophen (Tylenol), 1 TAB PO Q8 PRN for Headache (if needed) Ipratropium-Albuterol (Combivent Respimat), 1 PUFFS INH BID PRN for SOB/ Wheezing (if needed) Metoprolol Tartrate (Lopressor) (Lopressor), 50 MG PO BID Simvastatin (Zocor), 40 MG PO QPM If you have any questions please call us at [phone] or [phone] or [phone]
[2017-08-05 11:19] LABS: BASO % 0.4 %; BASO ABS # 0.03 K/uL (0-0.2); EOS % 1.7 %; EOS ABS # 0.12 K/uL (0-0.5); HEMATOCRIT 33.7 % (42-52); IG# 0.03 K/uL (0.00-0.02); LYMPH ABS # 1.21 K/uL (1.2-3.4); MEAN CELL VOLUME 85.5 fL (80-100); MEAN CORPUSCULAR HEMOGLOBIN 27.9 pg (25-34); MEAN CORPUSCULAR HGB CONC 32.6 g/dl (32-36); MEAN PLATELET VOLUME 8.2 fL (7.4-10.4); MONO % 9.3 %; MONO ABS # 0.66 K/uL (0.11-0.59); NEUT % 71.2 %; NEUT ABS # 5.06 K/uL (1.4-6.5); PLATELET COUNT 186 K/uL (130-400); RED CELL DISTRIBUTION WIDTH CV 15.3 % (11.5-14.5); RED CELL DISTRIBUTION WIDTH SD 48.2 fL (36.4-46.3); WHITE BLOOD COUNT 7.11 K/uL (4.8-10.8)
[2017-08-05 11:37] LABS: CALCIUM 8.9 mg/dl (8.5-10.1); CREATININE 3.03 mg/dl (0.60-1.40); POTASSIUM 3.8 mmol/L (3.5-5.1)
[~2017-08-17] VITALS: Ht 170.2 cm; Wt 58.4 kg
[~2017-08-17] MED LIST changes: +ATROPINE SULFATE 0.1 MG/ML 5ML SYR IV PRN; +BUPIVACAINE/EPINEPHRINE 0.5% MPF 1:200,000 30 ML VIAL ONE; -D5W AND 1/4NSS 1,000 ML IV SCH; +EpHEDrine SULFATE INJ 50 MG/ML AMP IV PRN; -FENTANYL CITRATE INJ 50 MCG/1 ML 2 ML VIAL IV ONE; +FENTANYL CITRATE INJ 50 MCG/1 ML 2 ML VIAL IV PRN; +GELATIN SPONGE 12-7MM ONE; +HEPARIN SOD (PORCINE) 1000 UNIT/ML 10 ML VIAL ONE; -HEPARIN SOD (PORCINE) 5000 UNIT/ML 1 ML VIAL IV ONE; -HEPARIN SOD (PORCINE) 5000 UNIT/ML 1 ML VIAL ONE; +LIDOCAINE HCL 1% 20 ML VIAL ONE; -LIDOCAINE HCL 1% 20 ML VIAL SQ ONE; +LIDOCAINE HCL 2% 2 ML VIAL (20MG/ML) ONE; -MIDAZOLAM HCL 1 MG/ML 2ML VIAL IV ONE; +ONDANSETRON INJ 2 MG/ML 2 ML VIAL IV PRN; +OXYC-57 PO; +PERCOCET HOME PACK PO ONE; +PROPOFOL IV EMULSION 10 MG/ML 20 ML VIAL IV ONE; +SODIUM CHLORIDE 0.9% 1000ML 1,000 ML IV SCH; +THROMBIN FOR SOLN 20000 UNIT KIT ONE
[2017-08-17 11:33] VITALS: BP 143/84; PULSE 90; TEMP 36.3; O2SAT 98; Ht 170.2 cm; Wt 58.4 kg
[2017-08-17 12:05] LABS: CALCIUM 8.8 mg/dl (8.5-10.1); CREATININE 3.2 mg/dl (0.60-1.40)
--- NOTE | 2017-08-17 12:31 | History and Physical ---
History & Physical Date of Service Aug 17, 2017. History & Physical Chief Complaint End stage renal disease on dialysis History of Present Illness The patient is a 76 year old male who has had worsening kidney function and on dialysis. Permcath was placed. He is here for creation of a fistula. Denies fever or chills. Allergies Coded Allergies: Heparin (Unverified Allergy, Unknown, unsure, 02/24/16) Sulfa Antibiotics (Verified Allergy, Unknown, "SULFA DRUGS": UNKNOWN, 02/23) Home Medications Scheduled Aspirin Enteric Coated (Ecotrin Or Generic *), 81 MG PO QAM Calcitriol (Rocaltrol Cap), 1 CAP PO 3XWK Cholecalciferol (Vitamin D3), 3 TAB PO QAM Clopidogrel (Plavix), 75 MG PO QAM Fluticasone Propionate (Nasal) (Flonase Allergy Relief), 2 SPRAYS NA BID Hydrocortisone (Topical) (Hydrocortisone), 1 APPLN TOP BID Ipratropium-Albuterol (Combivent Respimat), 1 PUFFS INH QID Metoprolol Tartrate (Lopressor) (Lopressor), 50 MG PO BID Sertraline (Zoloft), 50 MG PO QAM Simvastatin (Zocor), 40 MG PO QPM Scheduled PRN Acetaminophen (Tylenol), 1 TAB PO Q8 PRN for Headache Triamcinolone Acetonide (Topic (Triamcinolone Acetonide), 1 APPLN TOP BID PRN for prn Problem List Medical Problems: (1) Abdom Aortic Aneurysm (2) Abdominal aortic aneurysm (3) Anemia, chronic disease (4) Chronic Obstructive Pulmonary Disease, Unspecified (5) CKD (chronic kidney disease), stage IV (6) Coronary Atherosclerosis Of [place] Coronary Vessel (7) Diaphragmatic Hernia (8) Dyslipidemia (9) Emphysema Nec (10) Esophageal Reflux (11) Esophageal Stricture (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 (13) HTN (hypertension) (14) Hypertension Nos (15) 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/Unsp Chr [place] (16) Hypertrophy (Benign) Of Prostate W/O Urinary Obst & Oth Luts (17) Hypothyroidism Nos (18) Mixed Hyperlipidemia (19) Thoracic aortic aneurysm (20) Thoracic Aortic Embolism (21) Thoracic Aortic Stent Graft (22) Thoracoabdominal Aortic Aneurysm, Without Rupture (23) Tobacco Use Disorder (24) Vitamin D Deficiency, Unspecified Surgical Problems: (1) Cataract Extraction Status, Right Eye (2) H/O thoracic aortic aneurysm repair (3) History of vasectomy (4) Peripheral Vascular Angioplasty Status W Implants And Grafts (5) S/P AAA repair (6) S/P tonsillectomy Surgical / Medical History Hx Cardiac Surgery: Yes (AAA REPAIR X3 WITH STENT) Hx Abdominal Surgery: No Hx Cancer Surgery: No Hx Thoracic Surgery: No Hx Orthopedic: No Hx Urinary Tract Surgery: Yes (VASECTOMY) Past Medical/Surgical History: Heart Disease, High Cholesterol Family History FH: cancer FH: hypertension Social History Smoking Status: Former Smoker Hx Tobacco Use In Past Year?: No (2.5 years ago) Hx Alcohol Use - Type & Amnt: No Hx Substance Use -Type & Amnt: No Review of Systems Respiratory: No cough, No cyanosis, No VALENTIN, No hemoptysis, No orthopnea, No PND , No short of breath, No sputum production, No stridor, No wheezing, No dyspnea , No problem reported Cardiovascular: No chest pain, No chest tightness, No chest pressure, No palpitations, No syncope, No diaphoresis, No edema, No intermittent claudication , No orthopnea, No cyanosis, No mumur, No lightheadedness, No paroxysmal nocturnal dyspnea, No problem reported Gastrointestinal: No abdominal pain, No constipation, No diarrhea, No nausea, No vomiting, No anorexia, No appetite changes, No belching, No flatulence, No food intolerance, No hematemesis, No hemorrhoids, No hematochezia, No stool changes, No heartburn, No indigestion, No dysphagia, No rectal bleeding, No problem reported Physical Exam Constitutional: General Apperance: heathly-appearing, well-nourished, well-developed Level of Distress: NAD Ambulation: ambulating normally Psychiatric: Mental Status: active & alert Orientation: oriented except where noted Memory: recent memory normal, remote memory normal Lungs: Auscultation: breath sounds normal Cardiovascular: Heart Auscultation: RRR Peripheral Pulses: Radial Pulse: normal on the left, normal on the right Femoral Pulse: normal on the left, normal on the right Abdomen: Inspection & Palpation: soft Musculoskeletal: normal Extremities: Upper Right: no cyanosis, no edema, no varicosities, no palpable cord, no clubbing, no ulcers, no mottling Upper Left: no cyanosis, no edema, no palpable cord, no clubbing, no ulcers , no mottling Lower Right: no cyanosis, no edema, no varicosities, no palpable cord, no clubbing, no ulcers, no mottling Lower Left: no cyanosis, no edema, no varicosities, no palpable cord, no clubbing, no ulcers, no mottling Neurologic: Cranial Nerves: grossly intact Assessment and Plan Imp: End stage renal disease on dialysis Plan: Patient is here for a right wrist fistula creation. I have discussed the risks options and benefits of the procedure with the patient. The patient understands the risks options and benefits and agrees to the procedure.
--- NOTE | 2017-08-17 15:38 | [facility] Post Operative Brief Note ---
Immediate Operative Summary Operative Date Aug 17, 2017. Pre-Operative Diagnosis End stage renal disease on dialysis Post-Operative Diagnosis End stage renal disease on dialysis Procedure(s) Performed Creation of Right Wrist Arteriovenous Fistula Creation right antecubital basilic vein fistula Surgeon Dr. Serafin Farrell MD Pole Framer Surgeon(s) None Estimated Blood Loss 5 ml Findings Consistent with Post-Op Diagnosis Specimens None Per Surgeon Drains None Anesthesia Type MAC Complication(s) none Disposition Accompanied Pt To Recover: no Disposition: Recovery Room / PACU
--- NOTE | 2017-08-17 15:54 | DIAGNOSTIC IMAGING REPORT ---
SINGLE VIEW RIGHT FOREARM CLINICAL HISTORY: Incorrect instrument count. FINDINGS: A single view of the right forearm is presented. The skeletal structures are osteopenic. There is no radiographic evidence of right forearm fracture. The wrist and elbow joints are grossly maintained. Soft tissue edema and small foci of subcutaneous gas are noted in the forearm. Skin clips project over the elbow. No radiodense foreign body is identified to suggest retained surgical instrument. IMPRESSION: 1. There is no evidence of right forearm fracture on this single view. 2. There is no radiodense foreign body identified to suggest retained surgical instrument. 3. Soft tissue edema and subcutaneous gas in the forearm are likely related to recent surgery. Clinical correlation will be required. Electronically signed by: Leonides Franz M.D. 08/17/2017 3:52 PM Dictated Date/Time: 08/17/2017 3:50 PM
--- NOTE | 2017-08-17 16:07 | Discharge Instructions ---
Discharge Instructions Date of Service Aug 17, 2017. Visit Reason for Visit: End Stage Renal Disease Discharge Discharge Diagnosis / Problem: End stage renal disease Discharge Goals Goal(s): Therapeutic intervention Activity Recommendations Activity Limitations: per Instructions/Follow-up section Anesthesia . Post Anesthesia Instructions: If you have had General Anesthesia or IV Sedation: * Do not drive today. * Resume driving when surgeon permits. * Do not make important decisions or sign legal documents today. * Call surgeon for: 1. Temperature elevations greater than 101 degrees F. 2. Uncontrollable pain. 3. Excessive bleeding. 4. Persistent nausea and vomiting. 5. Medication intolerance (nausea, vomiting or rash). * For nausea and vomiting use only clear liquids such as: tea, soda, bouillon until nausea subsides, then gradually increase diet as tolerated. * If you have any concerns or questions, call your surgeon's office. If physician is unavailable and it is an emergency, call 911 or go to the nearest emergency room. . Instructions / Follow-Up Instructions / Follow-Up Call [phone] to schedule a follow up appointment if one not already scheduled. ACTIVITY RECOMMENDATIONS: See Above SPECIAL CARE INSTRUCTIONS: Call your doctor if: * Temperature above 101 degrees * Pain not relieved by pain medicine ordered * There is increased drainage or redness from any incision * You have any unanswered questions or concerns. Diet Recommendations Recommended Home Diet: resume previous diet Procedures Procedures Performed: Creation of Right Wrist Arteriovenous Fistula Creation right antecubital basilic vein fistula Pending Studies Studies pending at discharge: no Medical Emergencies . Who to Call and When: Medical Emergencies: If at any time you feel your situation is an emergency, please call 911 immediately. . Non-Emergent Contact Non-Emergency issues call your: Surgeon . . "Provider Documentation" section prepared by Serafin Farrell. .
--- NOTE | 2017-08-17 16:34 | Anesthesiology Progress Note ---
Anesthesia Post Op Note Date & Time Aug 17, 2017 at 16:34 Vital Signs Pain Intensity: 0 Vital Signs Past 12 Hours Date Time Temp Pulse Resp B/P (MAP) Pulse Ox O2 Delivery O2 Flow Rate FiO2 08/17/17 16:22 36.4 68 16 110/74 (84) 94 Room Air 08/17/17 16:20 74 22 94 08/17/17 16:20 74 22 08/17/17 16:16 110/72 08/17/17 16:15 71 16 08/17/17 16:15 71 16 94 08/17/17 16:11 101/71 08/17/17 16:10 73 27 08/17/17 16:10 72 27 93 08/17/17 16:05 80 16 08/17/17 16:05 80 16 124/81 95 08/17/17 16:01 109/65 08/17/17 16:00 76 08/17/17 16:00 76 95 08/17/17 16:00 36.2 74 12 109/65 (73) 94 Room Air 08/17/17 11:33 36.3 90 18 143/84 (103) 98 Room Air Notes Mental Status: alert / awake / arousable, participated in evaluation Pt Amnestic to Procedure: Yes Nausea / Vomiting: adequately controlled Pain: adequately controlled Airway Patency, RR, SpO2: stable & adequate BP & HR: stable & adequate Hydration State: stable & adequate Anesthetic Complications: no major complications apparent
[2017-08-17 16:40] VITALS: BP 117/75; PULSE 79; TEMP 36.5; O2SAT 96
[2017-08-17 17:10] VITALS: BP 135/78; PULSE 80; TEMP 36.6; O2SAT 95
--- NOTE | 2017-09-08 16:28 | OPERATIVE REPORT ---
DATE OF OPERATION: 08/17/2017 PREOPERATIVE DIAGNOSIS: End-stage renal disease, on dialysis. POSTOPERATIVE DIAGNOSIS: Same. PROCEDURE: 1. Creation of right wrist arteriovenous fistula. 2. Creation of right antecubital basilic vein AV fistula. SURGEON: Dr. Farrell. ANESTHETIC: Local with sedation. PROCEDURE INDICATIONS: The patient is a 77-year-old gentleman with end-stage renal disease in need of a permanent access. Fistula was recommended. It was questionable whether his cephalic vein and radial artery be usable, but we discussed the possibility of attempting a wrist fistula and if this does not work, then an antecubital fistula will be done. He understood the risks, options and benefits and agreed to have this procedure. OPERATION AND FINDINGS: The patient was taken to the operating room and placed in supine position. After left wrist was prepped and draped in a sterile manner, local anesthetic was administered. An incision was made between the radial artery and cephalic vein. Cephalic vein was identified. It was fairly small, approximately 2 mm in size. Radial artery was also small, approximately 2 to 2.5 mm in size. The cephalic vein was then divided distally after ligating the distal end. The radial artery was clamped proximal and distally. Longitudinal arteriotomy was then made. The vein was beveled and end-to-side anastomosis was accomplished. Clamps were removed at the end of this procedure. The flow was very minimal through the fistula. It was decided that an antecubital fistula will be done. We then closed this one with a 3-0 Vicryl suture for the subcutaneous layer and running 4-0 subcuticular Vicryl suture for the skin edges and Dermabond for dressing. We then instilled local anesthetic to the antecubital fossa. A transverse incision was made just below the antecubital fossa. The antecubital vein was identified going into the basilic vein. It was ligated distally and divided. The brachial artery was then isolated. It was of good caliber as well as the cephalic vein. The brachial artery was then clamped proximal and distally. Longitudinal arteriotomy was then made. The basilic vein was beveled and end-to-side anastomosis was accomplished using a 6-0 Prolene suture in the usual vascular fashion. Prior to completing the closure, backbleeding and forward bleeding was allowed to occur and final few sutures were placed and securely tied. Excellent thrill was felt in the fistula and the vein dilated nicely. Adequate hemostasis was noted. The wound was then closed in the usual fashion using a running 3-0 Vicryl suture, subcutaneous layer and running 4-0 subcuticular Vicryl suture for the skin edges and Dermabond for dressing. The patient left the operating room in satisfactory condition and tolerated the procedure well. I attest to the content of the Intraoperative Record and any orders documented therein. Any exception s are noted below.
== END | disposition home or self-care (01) ==
LOC: C.ACU 10:55
PROVIDERS: ATTEND Surgery Vascular Surgery
DX: N18.6 End stage renal disease (principal); I12.0 Hypertensive chronic kidney disease with stage 5 chronic kidney disease or end stage renal disease; J44.9 Chronic obstructive pulmonary disease, unspecified; Z99.2 Dependence on renal dialysis; E03.9 Hypothyroidism, unspecified; F32.9 Major depressive disorder, single episode, unspecified; N40.0 Benign prostatic hyperplasia without lower urinary tract symptoms; Z98.41 Cataract extraction status, right eye; Z98.890 Other specified postprocedural states; Z98.52 Vasectomy status; Z88.0 Allergy status to penicillin; Z90.89 Acquired absence of other organs; Z87.891 Personal history of nicotine dependence; Z80.9 Family history of malignant neoplasm, unspecified; Z82.49 Family history of ischemic heart disease and other diseases of the circulatory system

== ENCOUNTER → 2017-08-26 | Outpatient (CLI) | payer OTHER ==
[~2017-08-26] MED LIST changes: -ATROPINE SULFATE 0.1 MG/ML 5ML SYR IV PRN; -BUPIVACAINE/EPINEPHRINE 0.5% MPF 1:200,000 30 ML VIAL ONE; -CEFAZOLIN 1000MG IV PUSH 7.5 ML IV SCH; -EpHEDrine SULFATE INJ 50 MG/ML AMP IV PRN; -FENTANYL CITRATE INJ 50 MCG/1 ML 2 ML VIAL IV PRN; -FENTANYL CITRATE INJ 50 MCG/1 ML 2 ML VIAL ONE; -GELATIN SPONGE 12-7MM ONE; -HEPARIN SOD (PORCINE) 1000 UNIT/ML 10 ML VIAL ONE; -LIDOCAINE HCL 1% 20 ML VIAL ONE; -LIDOCAINE HCL 2% 2 ML VIAL (20MG/ML) ONE; -MIDAZOLAM HCL 1 MG/ML 2ML VIAL ONE; -ONDANSETRON INJ 2 MG/ML 2 ML VIAL IV PRN; -PERCOCET HOME PACK PO ONE; -PROPOFOL IV EMULSION 10 MG/ML 20 ML VIAL IV ONE; -SODIUM CHLORIDE 0.9% 1000ML 1,000 ML IV SCH; -THROMBIN FOR SOLN 20000 UNIT KIT ONE
[2017-08-26 17:19] LABS: BASO % 0.9 %; BASO ABS # 0.06 K/uL (0-0.2); EOS % 3.5 %; EOS ABS # 0.24 K/uL (0-0.5); HEMATOCRIT 35.1 % (42-52); HEMOGLOBIN 11.3 g/dL (14.0-18.0); IG# 0.02 K/uL (0.00-0.02); LYMPH % 19.1 %; LYMPH ABS # 1.32 K/uL (1.2-3.4); MEAN CELL VOLUME 90.2 fL (80-100); MEAN CORPUSCULAR HGB CONC 32.2 g/dl (32-36); MEAN PLATELET VOLUME 8.6 fL (7.4-10.4); MONO % 9.1 %; MONO ABS # 0.63 K/uL (0.11-0.59); NEUT % 67.1 %; NEUT ABS # 4.63 K/uL (1.4-6.5); PLATELET COUNT 225 K/uL (130-400); RED CELL DISTRIBUTION WIDTH CV 16.6 % (11.5-14.5); RED CELL DISTRIBUTION WIDTH SD 54.4 fL (36.4-46.3)
[2017-08-26 17:30] LABS: ALBUMIN 3.1 gm/dl (3.4-5.0); ALT/SGPT 15 U/L (12-78); BLOOD UREA NITROGEN 30 mg/dl (7-18); CALCIUM 8.5 mg/dl (8.5-10.1); CARBON DIOXIDE 28 mmol/L (21-32); CREATININE 3.35 mg/dl (0.60-1.40); GLUCOSE 133 mg/dl (70-99); POTASSIUM 4.1 mmol/L (3.5-5.1); SODIUM 139 mmol/L (136-145)
[2017-08-26 17:41] LABS: ALKALINE PHOSPHATASE 99 U/L (45-117); AST/SGOT 19 U/L (15-37)
== END | disposition home or self-care (01) ==
LOC: C.LABPVFM 15:52
PROVIDERS: ATTEND Nurse Practitioner
DX: R20.0 Anesthesia of skin (principal); R26.81 Unsteadiness on feet; N18.6 End stage renal disease

== ENCOUNTER 2017-08-27 09:11 | Emergency (ER) | payer OTHER ==
[~2017-08-27] VITALS: Ht 170.2 cm; Wt 60.0 kg
[~2017-08-27 09:11] MED LIST changes: -ACET-1256 PO; -ASPI81TA21 PO; -CHOL1CHW10 PO; -CLOP1TAB15 PO; -FINA5TAB PO; -IPRA1AER2 INH; -METO100T14 PO; -SERT-234 PO; -SIMV80TA2 PO
[2017-08-27 09:21] VITALS: TEMP 36.3; Ht 170.2 cm; Wt 60.0 kg
--- NOTE | 2017-08-27 10:00 | EMERGENCY ROOM VISIT NOTE ---
History Report prepared by Reynaldo: Leelee Canales Under the Supervision of: Dr. Leonardo Lundberg M.D. First contact with patient: 09:36 Chief Complaint: OTHER COMPLAINT Stated Complaint: NEURO SYMPTOMS, SURGERY 08/17/17 History of Present Illness The patient is a 77 year old male who presents to the Emergency Room with complaints of constant tingling in his arms and hands beginning 08/17/17. The patient had a fistula placed in his right arm on 08/17. He reports increasing tingling in his arms and hands, difficulty ambulating, and difficulty with fine motor coordination of his fingers since his surgery. The patient saw Dr Farrell- Vascular Surgery yesterday who did an ultrasound on the vessels in his arms. He states Dr. Farrell told him to make an appointment with his PCP who may refer him to a neurologist. The patient saw his PCP who did blood work and was gonna schedule a CT scan for today because he was having a "dull" headache. He states he had worsening difficulty ambulating this morning which caused him to come to the ED. The patient also notes back pain beginning yesterday. The patient has a history of an aortic aneurysm. He reports a history of aortic aneurysm repair, however, he states he has had a newer aortic aneurysm which he does not want to get repaired. The patient has dialysis MWF. The patient is still able to urinate. Source of History: patient Onset: 08/17/17 Position: arm (bilateral), hand (bilateral) Quality: other (tingling) Timing: constant Associated Symptoms: + headache, + back pain Review of Systems See HPI for pertinent positives and negatives. A total of ten systems were reviewed and were otherwise negative. 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 (13) HTN (hypertension) (14) Hypertension Nos (15) 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/Unsp Chr Kdny (16) Hypertrophy (Benign) Of Prostate W/O Urinary Obst & Oth Luts (17) Hypothyroidism Nos (18) Mixed Hyperlipidemia (19) Thoracic aortic aneurysm (20) Thoracic Aortic Embolism (21) Thoracic Aortic Stent Graft (22) Thoracoabdominal Aortic Aneurysm, Without Rupture (23) Tobacco Use Disorder (24) Vitamin D Deficiency, Unspecified Surgical Problems: (1) Cataract Extraction Status, Right Eye (2) H/O thoracic aortic aneurysm repair (3) History of vasectomy (4) Peripheral Vascular Angioplasty Status W Implants And Grafts (5) S/P AAA repair (6) S/P tonsillectomy Family History FH: cancer FH: hypertension Social History Smoking Status: Former Smoker Alcohol Use: none Current/Historical Medications Scheduled Aspirin Enteric Coated (Ecotrin Or Generic), 81 MG PO QAM Cholecalciferol (Vitamin D3), 3,000 UNITS PO QAM Clopidogrel (Plavix), 75 MG PO QAM Finasteride (Proscar), 5 MG PO QAM Metoprolol Tartrate (Lopressor) (Lopressor), 50 MG PO BID Sertraline (Zoloft), 50 MG PO QAM Simvastatin (Zocor), 40 MG PO QPM Scheduled PRN Acetaminophen (Tylenol), 1 TAB PO Q8 PRN for Headache Ipratropium-Albuterol (Combivent Respimat), 1 PUFFS INH BID PRN for SOB/Wheezing Allergies Coded Allergies: Heparin (Verified Allergy, Unknown, platelet count decreased, 08/27/17) Sulfa Antibiotics (Verified Allergy, Unknown, hives, 08/27/17) Physical Exam Vital Signs Date Time Temp Pulse Resp B/P (MAP) Pulse Ox O2 Delivery O2 Flow Rate FiO2 08/27/17 14:55 102 143/74 93 08/27/17 13:49 98 16 182/109 08/27/17 13:32 99 08/27/17 12:04 89 180/92 97 Room Air 08/27/17 10:04 86 18 100 Room Air 08/27/17 09:41 86 08/27/17 09:21 36.3 68 18 148/87 Room Air Physical Exam GENERAL: Awake, alert, well-appearing, in no distress HENT: Normocephalic, atraumatic. Oropharynx unremarkable. Dry mucus membrane. EYES: Normal conjunctiva. Sclera non-icteric. NECK: Supple. No nuchal rigidity. FROM. No JVD. RESPIRATORY: Clear to auscultation. CARDIAC: Regular rate, normal rhythm. Extremities warm and well perfused. Pulses equal. ABDOMEN: Soft, non-distended. No tenderness to palpation. No rebound or guarding. No masses. RECTAL: Deferred. MUSCULOSKELETAL: Chest examination reveals no tenderness. The back is symmetrical on inspection without obvious abnormality. There is no CVA tenderness to palpation. No joint edema. UPPER EXTREMITIES: Palpable thrill in right AV fistula. Mild intention tremor bilaterally. LOWER EXTREMITIES: Calves are equal size bilaterally and non-tender. No edema. No discoloration. NEURO: Normal sensorium. No sensory or motor deficits noted. normal cerebellar function with [id number], 5/5 strength and SILT x 4 ext., Unsteady gait. SKIN: No rash or jaundice noted. Medical Decision & Procedures ER Provider Diagnostic Interpretation: Radiology results as stated below per my review and radiologist interpretation: CHEST ONE VIEW PORTABLE FINDINGS: Cardiac silhouette is within normal limits in size. Stented aneurysm of the aortic arch and descending thoracic aorta redemonstrated. Right internal jugular dual-lumen hemodialysis catheter is present with distal tip terminating in the expected region of the SVC. No pneumothorax. Mild biapical pleural-parenchymal scarring. No pleural effusion or focal airspace consolidation. The bones of the chest appear grossly intact. IMPRESSION: 1. No acute process. 2. Endovascular stent graft redemonstrated within a thoracic aortic aneurysm. The above report was generated using voice recognition software. It may contain grammatical, syntax or spelling errors. Electronically signed by: Vadim Vallejo M.D. ORBIT RADIOGRAPHS 3 VIEWS FINDINGS: There are no radiopaque foreign bodies identified within the orbits. IMPRESSION: No radiopaque foreign bodies identified within the orbits. Electronically signed by: Timmy Montalvo M.D. BRAIN WITHOUT CONTRAST FINDINGS: The large [id number] farm mechanic localizer images demonstrate no gross abnormality. The midline structures including the corpus callosum, brainstem, optic chiasm, pituitary and pineal glands are unremarkable on the sagittal T1 series. No cerebellar tonsillar herniation. Degenerative changes are noted within the imaged cervical spine. No restricted diffusion identified to suggest acute or subacute infarction. There is no acute intracranial hemorrhage, midline shift, abnormal extra-axial collections, definite hydrocephalus or intracranial mass identified. There is moderate atrophy with ex vacuo ventriculomegaly. Moderate multifocal areas of T2/FLAIR prolongation within the subcortical, deep and periventricular white matter suggest chronic microvascular ischemic changes. The major flow voids at the level of the skull base appear patent. Evidence of prior bilateral cataract repair. Mastoid air cells are clear. Mild polypoid mucosal thickening of the posterior inferior right maxillary antrum. Mild ethmoid sinus disease. Right luis angel bullosa with rightward bowing and spurring of the nasal septum. Scalp, calvarium and soft tissues are within normal limits. IMPRESSION: 1. No acute intracranial abnormality identified, specifically no evidence of acute or subacute infarction. 2. Moderate atrophy with ex vacuo ventriculomegaly and moderate chronic microvascular ischemic changes. 3. Mild paranasal sinus disease. The above report was generated using voice recognition software. It may contain grammatical, syntax or spelling errors. Electronically signed by: Vadim Vallejo M.D. Laboratory Results 08/27/17 10:00 Red Blood Count 3.74, Mean Corpuscular Volume 89.8, Mean Corpuscular Hemoglobin 28.6, Mean Corpuscular Hemoglobin Concent 31.8, Mean Platelet Volume 8.6, Neutrophils (%) (Auto) 72.5, Lymphocytes (%) (Auto) 15.4, Monocytes (%) (Auto) 8.0, Eosinophils (%) (Auto) 2.6, Basophils (%) (Auto) 1.2, Neutrophils # (Auto) 5.64, Lymphocytes # (Auto) 1.20, Monocytes # (Auto) 0.62, Eosinophils # (Auto) 0.20, Basophils # (Auto) 0.09 08/27/17 10:00 Test 08/27/17 10:00 White Blood Count 7.77 K/uL (4.8-10.8) Red Blood Count 3.74 M/uL (4.7-6.1) Hemoglobin 10.7 g/dL (14.0-18.0) Hematocrit 33.6 % (42-52) Mean Corpuscular Volume 89.8 fL (80-100) Mean Corpuscular Hemoglobin 28.6 pg (25-34) Mean Corpuscular Hemoglobin Concent 31.8 g/dl (32-36) Platelet Count 222 K/uL (130-400) Mean Platelet Volume 8.6 fL (7.4-10.4) Neutrophils (%) (Auto) 72.5 % Lymphocytes (%) (Auto) 15.4 % Monocytes (%) (Auto) 8.0 % Eosinophils (%) (Auto) 2.6 % Basophils (%) (Auto) 1.2 % Neutrophils # (Auto) 5.64 K/uL (1.4-6.5) Lymphocytes # (Auto) 1.20 K/uL (1.2-3.4) Monocytes # (Auto) 0.62 K/uL (0.11-0.59) Eosinophils # (Auto) 0.20 K/uL (0-0.5) Basophils # (Auto) 0.09 K/uL (0-0.2) RDW Standard Deviation 54.1 fL (36.4-46.3) RDW Coefficient of Variation 16.6 % (11.5-14.5) Immature Granulocyte % (Auto) 0.3 % Immature Granulocyte # (Auto) 0.02 K/uL (0.00-0.02) Prothrombin Time 10.3 SECONDS (9.0-12.0) Prothromb Time International Ratio 1.0 (0.9-1.1) Anion Gap 9.0 mmol/L (3-11) Est Creatinine Clear Calc Drug Dose 15.2 ml/min Estimated GFR () 19.2 Estimated GFR (Non- 16.5 BUN/Creatinine Ratio 8.6 (10-20) Calcium Level 8.6 mg/dl (8.5-10.1) Phosphorus Level 3.9 mg/dl (2.5-4.9) Magnesium Level 2.5 mg/dl (1.8-2.4) Total Bilirubin 0.5 mg/dl (0.2-1) Direct Bilirubin 0.1 mg/dl (0-0.2) Aspartate Amino Transf (AST/SGOT) 18 U/L (15-37) Alanine Aminotransferase (ALT/SGPT) 14 U/L (12-78) Alkaline Phosphatase 95 U/L (45-117) Total Creatine Kinase 78 U/L (39-308) Troponin I < 0.015 ng/ml (0-0.045) Total Protein 7.8 gm/dl (6.4-8.2) Albumin 3.0 gm/dl (3.4-5.0) Lipase 190 U/L (73-393) Laboratory results reviewed by me ECG Per My Interpretation Indication: weakness Rate (beats per minute): 83 Rhythm: normal sinus Findings: no acute ischemic change, other (normal axis) ED Course 0938: The patient was evaluated in room A12B. A complete history and physical exam was performed. 1446: I reevaluated the patient. Discussed results and discharge instructions: He verbalized understanding and agreement. The patient is ready for discharge. Medical Decision I reviewed the patient's past medical history, medications, and the nursing notes as described above. Prior records/ancillary studies reviewed and summarized above. Differential diagnosis: Etiologies such as metabolic, infection, hypo/hyperglycemia, electrolyte abnormalities, cardiac sources, intracerebral event, toxicologic, neurologic, as well as others were entertained. The patient is a 77-year-old gentleman with a past medical history of end-stage renal disease on dialysis, TAA s/p graft and AAA that patient is non-operative who presents emergency department with persistent extremity paresthesias as well as ambulatory imbalance since his right upper arm AV fistula placement on the with Dr. Farrell per hpi. Of note, the patient saw Dr. Farrell yesterday who had and he had negative arterial and venous ultrasounds of his arms. Patient was referred to his PCP who ordered an outpatient CAT scan. However it comes to the ED today because he felt like his unsteadiness was worse. Also reports thoracic back pain which he says is new. He does have a history of an aortic aneurysm repair but reports on his last evaluation a subsequent aneurysm was identified but he says that he does not want to have intervention but of the high risk options available. He says "if this ruptures then it ruptures". On exam the patient is well-appearing in no distress, afebrile stable vital signs. Patient is neurologically intact including finger to nose. He has a mild intention tremor in bilateral upper extremities that his partner says is baseline. Patient had MRI of the brain that was unremarkable. His labs are otherwise unremarkable and consistent with patient' s end-stage renal disease. I did discuss with the patient that his symptoms could be related to his aneurysm. However, we agreed that given that he has made the decision that he would not have any intervention on his aneurysm in the setting of the risk associated with contrast in setting of his end-stage renal disease we agreed that we will not pursue a CTA at this time. I discussed the case with the patient's vascular surgeon Dr. Farrell, who agrees that given the patient will not pursue any surgical intervention there is no reason to pursue further evaluation. Thus, I discussed with the patient options for inpatient rehab which I recommended and believe he will benefit from given his difficulty with ambulation. However he prefers outpatient physical therapy at this time. The patient met with case preparer and liner who will help facilitate this with the patient's primary doctor. Findings and plan for follow -up reviewed with patient. Patient agreeable and d/c'd per discharge instructions. Medication Reconcilliation Current Medication List: was personally reviewed by me Blood Pressure Screening Patient's blood pressure: Elevated blood pressure Blood pressure disposition: Elevated BP felt to be situational Impression Primary Impression: Paresthesia of both hands Additional Impressions: Paresthesia of both legs Gait instability Scribe Attestation The scribe's documentation has been prepared under my direction and personally reviewed by me in its entirety. I confirm that the note above accurately reflects all work, treatment, procedures, and medical decision making performed by me. Departure Information Dispostion Home / Self-Care Referrals Kelli Santos C.R.N.P (PCP) Forms HOME CARE DOCUMENTATION FORM, IMPORTANT VISIT INFORMATION, WORK / SCHOOL INSTRUCTIONS Patient Instructions ED Neuropathy Peripheral, ED Paraesthesias, ED Prevention Fall, My [facility] Additional Instructions Please follow up with your primary care physician on Wednesday for re-evaluation and contact your dialysis center to make up your dialysis that was missed today. The cause your symptoms is unclear at this time. It may be related to neuropathy. Otherwise, your exam, EKG, chest xray, lab results, and MRI of your brain did not show signs of an emergent condition at this time. Use your walker at all times. Follow-up with your primary care doctor as discussed and facilitated by our case management team for outpatient rehab. Continue your current medications as prescribed. Return to the emergency department for worsening symptoms as described in the accompanying instructions. Problem Qualifiers
--- NOTE | 2017-08-27 10:21 | DIAGNOSTIC IMAGING REPORT ---
CHEST ONE VIEW PORTABLE HISTORY: 77 years-old Male CHEST PAIN acute atypical chest pain COMPARISON: Chest radiograph 08/14/2016 TECHNIQUE: Portable AP view the chest FINDINGS: Cardiac silhouette is within normal limits in size. Stented aneurysm of the aortic arch and descending thoracic aorta redemonstrated. Right internal jugular dual-lumen hemodialysis catheter is present with distal tip terminating in the expected region of the SVC. No pneumothorax. Mild biapical pleural-parenchymal scarring. No pleural effusion or focal airspace consolidation. The bones of the chest appear grossly intact. IMPRESSION: 1. No acute process. 2. Endovascular stent graft redemonstrated within a thoracic aortic aneurysm. The above report was generated using voice recognition software. It may contain grammatical, syntax or spelling errors. Electronically signed by: Vadim Vallejo M.D. 08/27/2017 10:19 AM Dictated Date/Time: 08/27/2017 10:18 AM
[2017-08-27 10:27] LABS: ALT/SGPT 14 U/L (12-78); BLOOD UREA NITROGEN 29 mg/dl (7-18); CALCIUM 8.6 mg/dl (8.5-10.1); CARBON DIOXIDE 24 mmol/L (21-32); CREATININE 3.35 mg/dl (0.60-1.40); GLUCOSE 99 mg/dl (70-99); LIPASE 190 U/L (73-393); POTASSIUM 4.1 mmol/L (3.5-5.1); SODIUM 138 mmol/L (136-145)
[2017-08-27 10:30] LABS: ALKALINE PHOSPHATASE 95 U/L (45-117); AST/SGOT 18 U/L (15-37); PHOSPHORUS 3.9 mg/dl (2.5-4.9); TOTAL PROTEIN 7.8 gm/dl (6.4-8.2)
--- NOTE | 2017-08-27 11:18 | DIAGNOSTIC IMAGING REPORT ---
ORBIT RADIOGRAPHS 3 VIEWS HISTORY: pre-MRI screening. COMPARISON: None. FINDINGS: There are no radiopaque foreign bodies identified within the orbits. IMPRESSION: No radiopaque foreign bodies identified within the orbits. Electronically signed by: Timmy Montalvo M.D. 08/27/2017 11:16 AM Dictated Date/Time: 08/27/2017 11:16 AM
--- NOTE | 2017-08-27 11:58 | DIAGNOSTIC IMAGING REPORT ---
BRAIN WITHOUT CONTRAST HISTORY: 77 years-old Male ataxia, paresthesias extremities, recent AV fistula placement acute ataxia with paresthesia of the upper extremities. Acute frontal headache COMPARISON: None available TECHNIQUE: Multiplanar multisequence MRI of the brain was obtained without contrast FINDINGS: The large kuddd-qd-pzah med surg rn localizer images demonstrate no gross abnormality. The midline structures including the corpus callosum, brainstem, optic chiasm, pituitary and pineal glands are unremarkable on the sagittal T1 series. No cerebellar tonsillar herniation. Degenerative changes are noted within the imaged cervical spine. No restricted diffusion identified to suggest acute or subacute infarction. There is no acute intracranial hemorrhage, midline shift, abnormal extra-axial collections, definite hydrocephalus or intracranial mass identified. There is moderate atrophy with ex vacuo ventriculomegaly. Moderate multifocal areas of T2/FLAIR prolongation within the subcortical, deep and periventricular white matter suggest chronic microvascular ischemic changes. The major flow voids at the level of the skull base appear patent. Evidence of prior bilateral cataract repair. Mastoid air cells are clear. Mild polypoid mucosal thickening of the posterior inferior right maxillary antrum. Mild ethmoid sinus disease. Right luis angel bullosa with rightward bowing and spurring of the nasal septum. Scalp, calvarium and soft tissues are within normal limits. IMPRESSION: 1. No acute intracranial abnormality identified, specifically no evidence of acute or subacute infarction. 2. Moderate atrophy with ex vacuo ventriculomegaly and moderate chronic microvascular ischemic changes. 3. Mild paranasal sinus disease. The above report was generated using voice recognition software. It may contain grammatical, syntax or spelling errors. Electronically signed by: Vadim Vallejo M.D. 08/27/2017 11:57 AM Dictated Date/Time: 08/27/2017 11:52 AM
[2017-08-27 14:39] LABS: BASO % 1.2 %; BASO ABS # 0.09 K/uL (0-0.2); EOS % 2.6 %; HEMATOCRIT 33.6 % (42-52); HEMOGLOBIN 10.7 g/dL (14.0-18.0); IG# 0.02 K/uL (0.00-0.02); LYMPH % 15.4 %; MEAN CELL VOLUME 89.8 fL (80-100); MEAN CORPUSCULAR HEMOGLOBIN 28.6 pg (25-34); MEAN CORPUSCULAR HGB CONC 31.8 g/dl (32-36); MEAN PLATELET VOLUME 8.6 fL (7.4-10.4); MONO ABS # 0.62 K/uL (0.11-0.59); NEUT % 72.5 %; NEUT ABS # 5.64 K/uL (1.4-6.5); PLATELET COUNT 222 K/uL (130-400); RED CELL DISTRIBUTION WIDTH CV 16.6 % (11.5-14.5); RED CELL DISTRIBUTION WIDTH SD 54.1 fL (36.4-46.3); WHITE BLOOD COUNT 7.77 K/uL (4.8-10.8)
[2017-08-27 14:55] VITALS: BP 143/74; PULSE 102; O2SAT 93
[2017-08-30] MEDS ORDERED: METO100T14 PO (08:35)
[2017-08-30] MEDS ORDERED: IPRA1AER2 INH (08:40)
[2017-08-30] MEDS ORDERED: CLOP1TAB15 PO (08:48)
[2017-08-30] MEDS ORDERED: ASPI81TA21 PO (09:39)
[2017-08-30] MEDS ORDERED: FINA5TAB PO (09:39)
== END 2017-08-27 14:56 | disposition home or self-care (01) ==
LOC: C.EDB 09:12 → C.EDA 14:56
DX: R20.2 Paresthesia of skin (principal); R26.9 Unspecified abnormalities of gait and mobility; I71.4 Abdominal aortic aneurysm, without rupture; J44.9 Chronic obstructive pulmonary disease, unspecified; I25.10 Atherosclerotic heart disease of native coronary artery without angina pectoris; N18.4 Chronic kidney disease, stage 4 (severe); E78.5 Hyperlipidemia, unspecified; I10 Essential (primary) hypertension; N40.0 Benign prostatic hyperplasia without lower urinary tract symptoms; E78.2 Mixed hyperlipidemia; Z87.891 Personal history of nicotine dependence; Z79.82 Long term (current) use of aspirin

== ENCOUNTER 2017-08-30 10:45 | Emergency (ER) | payer OTHER ==
[~2017-08-30] VITALS: Ht 170.2 cm; Wt 58.5 kg
[2017-08-30 10:45] VITALS: O2SAT 100; Ht 170.2 cm; Wt 58.5 kg
[~2017-08-30 10:45] MED LIST changes: +ASPI81TA21 PO; +CLOP1TAB15 PO; +FINA5TAB PO; -HYDR2.5L TOP; +IPRA1AER2 INH; +METO100T14 PO; -OXYC-57 PO
[2017-08-30] MEDS ORDERED: CHOL1CHW10 PO (10:53)
[2017-08-30] MEDS ORDERED: SERT-234 PO (10:53)
[2017-08-30] MEDS ORDERED: SODIUM CHLORIDE 0.9% 1000ML 1,000 ML IV STA (11:34)
[2017-08-30 11:45] LABS: BASO % 0.5 %; BASO ABS # 0.04 K/uL (0-0.2); EOS % 1.3 %; HEMATOCRIT 33.9 % (42-52); HEMOGLOBIN 11.1 g/dL (14.0-18.0); IG# 0.02 K/uL (0.00-0.02); LYMPH % 10.6 %; LYMPH ABS # 0.82 K/uL (1.2-3.4); MEAN CELL VOLUME 87.1 fL (80-100); MEAN CORPUSCULAR HEMOGLOBIN 28.5 pg (25-34); MEAN CORPUSCULAR HGB CONC 32.7 g/dl (32-36); MEAN PLATELET VOLUME 8.2 fL (7.4-10.4); MONO % 5.8 %; MONO ABS # 0.45 K/uL (0.11-0.59); NEUT % 81.5 %; NEUT ABS # 6.32 K/uL (1.4-6.5); PLATELET COUNT 221 K/uL (130-400); RED CELL DISTRIBUTION WIDTH CV 16.7 % (11.5-14.5); RED CELL DISTRIBUTION WIDTH SD 52.8 fL (36.4-46.3); WHITE BLOOD COUNT 7.75 K/uL (4.8-10.8)
[2017-08-30 11:53] LABS: PTT PATIENT 28.3 SECONDS (21.0-31.0)
--- NOTE | 2017-08-30 12:00 | DIAGNOSTIC IMAGING REPORT ---
CHEST ONE VIEW PORTABLE CLINICAL HISTORY: EVALUATE ALTERED MENTAL STATUS/WEAKNESS COMPARISON STUDY: Chest CT September 14, 2016 and chest radiograph August 27, 2017. FINDINGS: A right internal jugular dual-lumen [id number]-Xoob remains in place. There is no pneumothorax or pleural effusion. There is no evidence for pulmonary edema. There is no consolidation. Endovascular stent graft within the ascending aorta, aortic arch and descending thoracic aorta is partially imaged on this exam. This appears unchanged. IMPRESSION: 1. No acute cardiopulmonary findings. 2. Endovascular stent graft redemonstrated within a thoracic aortic aneurysm. Electronically signed by: Jayesh Hart M.D. 08/30/2017 11:59 AM Dictated Date/Time: 08/30/2017 11:57 AM
[2017-08-30 12:01] LABS: ALBUMIN 3.2 gm/dl (3.4-5.0); ALT/SGPT 15 U/L (12-78); AST/SGOT 17 U/L (15-37); BLOOD UREA NITROGEN 33 mg/dl (7-18); CALCIUM 9.1 mg/dl (8.5-10.1); CARBON DIOXIDE 21 mmol/L (21-32); CREATININE 3.38 mg/dl (0.60-1.40); GLUCOSE 100 mg/dl (70-99); LIPASE 102 U/L (73-393); SODIUM 133 mmol/L (136-145)
[2017-08-30] MEDS ORDERED: LIDOCAINE/EPINEPHRINE 1% 20 ML VIAL ONE (12:06)
[2017-08-30 12:09] LABS: ALKALINE PHOSPHATASE 94 U/L (45-117); CKMB 1.3 ng/ml (0.5-3.6); TOTAL PROTEIN 8.2 gm/dl (6.4-8.2)
[2017-08-30 13:02] LABS: CSF GLUCOSE 59 mg/dl (40-70); CSF TOTAL PROTEIN 83.6 mg/dl (15.0-45.0)
--- NOTE | 2017-08-30 14:07 | EMERGENCY ROOM VISIT NOTE ---
History Report prepared by Gorgeibjames: Basim Taylor Under the Supervision of: Dr. Pritesh Mcdonough D.O. First contact with patient: 11:23 Chief Complaint: WEAKNESS Stated Complaint: LEG WEAKNESS Nursing Triage Summary: Pt. presents via EMS transport from home with complaints of weakness to BLE. States had fistula for dialysis placed in RUE on August 17. was seen in ED on for numbness/tingling in upper extremities and states was told had neuropathy, also had MRI of head due to headache. Pt. denies any pain at this time. History of Present Illness The patient is a 77 year old male who presents to the Emergency Room by EMS with complaints of constant bilateral leg weakness beginning a few days ago. He also complains of bilateral hand numbness, and upper back pain. He states that he is unable to walk. The patient has a history of chronic back pain, but states that he developed a new pain behind his left shoulder blade. He was seen in the ED three days ago for numbness and tingling of his upper extremities. He had a brain MRI which was negative. He was able to walk at this time with assistance. The patient is on dialysis (patient missed treatment three days ago when seen in the ED). He had a RUE fistula placed 13 days ago. He states that his hands have been numb since he had the fistula placed. The patient was seen by vascular surgery last week who could not identify any vascular abnormalities. He has a history of AAA. Source of History: patient Onset: A few days ago Position: leg (bilateral) Quality: other (weakness) Timing: constant Associated Symptoms: + back pain (behind left shoulderblade), + numbness ( bilateral hands) Review of Systems See HPI for pertinent positives & negatives. A total of 10 systems reviewed and were otherwise negative. 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 (13) HTN (hypertension) (14) Hypertension Nos (15) 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/Unsp Chr Kd[place] (16) Hypertrophy (Benign) Of Prostate W/O Urinary Obst & Oth Luts (17) Hypothyroidism Nos (18) Mixed Hyperlipidemia (19) Thoracic aortic aneurysm (20) Thoracic Aortic Embolism (21) Thoracic Aortic Stent Graft (22) Thoracoabdominal Aortic Aneurysm, Without Rupture (23) Tobacco Use Disorder (24) Vitamin D Deficiency, Unspecified Surgical Problems: (1) Cataract Extraction Status, Right Eye (2) H/O thoracic aortic aneurysm repair (3) History of vasectomy (4) Peripheral Vascular Angioplasty Status W Implants And Grafts (5) S/P AAA repair (6) S/P tonsillectomy Family History FH: cancer FH: hypertension Social History Smoking Status: Former Smoker Alcohol Use: none Marital Status: Housing Status: lives with significant other Occupation Status: retired Current/Historical Medications Scheduled Aspirin Enteric Coated (Ecotrin Or Generic), 81 MG PO QAM Cholecalciferol (Vitamin D3), 3,000 UNITS PO QAM Clopidogrel (Plavix), 75 MG PO QAM Finasteride (Proscar), 5 MG PO QAM Metoprolol Tartrate (Lopressor) (Lopressor), 50 MG PO BID Sertraline (Zoloft), 50 MG PO QAM Simvastatin (Zocor), 40 MG PO QPM Scheduled PRN Acetaminophen (Tylenol), 1 TAB PO Q8 PRN for Headache Ipratropium-Albuterol (Combivent Respimat), 1 PUFFS INH BID PRN for SOB/Wheezing Allergies Coded Allergies: Heparin (Verified Allergy, Unknown, platelet count decreased, 08/30/17) Sulfa Antibiotics (Verified Allergy, Unknown, hives, 08/30/17) Physical Exam Vital Signs Date Time Temp Pulse Resp B/P (MAP) Pulse Ox O2 Delivery O2 Flow Rate FiO2 08/30/17 14:02 197/84 08/30/17 14:00 107 22 96 Room Air 08/30/17 13:20 100 08/30/17 13:06 102 16 100 Room Air 08/30/17 13:01 174/92 08/30/17 12:36 98 17 100 Room Air 08/30/17 12:31 166/85 08/30/17 12:30 99 17 100 Room Air 08/30/17 12:01 177/106 08/30/17 12:00 103 22 95 Room Air 08/30/17 11:31 186/104 08/30/17 11:30 102 16 99 Room Air 08/30/17 11:05 83 12 158/99 95 Room Air 08/30/17 10:58 96 08/30/17 10:45 100 Room Air 08/30/17 10:45 36.5 100 16 187/105 100 Room Air Physical Exam CONSTITUTIONAL/VITAL SIGNS: Reviewed / noted above. GENERAL: Non-toxic in appearance. INTEGUMENTARY: Warm, dry, and [place]. HEAD: Normocephalic. EYES: without scleral icterus or trauma. ENT/OROPHARYNX: clear and moist. LYMPHADENOPATHY/NECK: Is supple without lymphadenopathy or meningismus. RESPIRATORY: Lungs clear and equal. CARDIOVASCULAR: Regular rate and rhythm. GI/ABDOMEN: Soft and nontender. No organomegaly or pulsatile mass. No rebound or guarding. Normal bowel sounds. EXTREMITIES: Warm and well perfused. BACK: No CVA tenderness. NEUROLOGICAL: Generalized weakness in the lower extremities. Able to lift both legs off of the bed. No reflexes were found in the lower or upper extremities. Mild decreased strength in the hands bilaterally. PSYCHIATRIC: normal affect. MUSCULOSKELETAL: Normally developed with good muscle tone. Medical Decision & Procedures ER Provider Diagnostic Interpretation: Radiology results as stated below per my review and radiologist interpretation: CHEST ONE VIEW PORTABLE FINDINGS: A right internal jugular dual-lumen [id number] remains in place. There is no pneumothorax or pleural effusion. There is no evidence for pulmonary edema. There is no consolidation. Endovascular stent graft within the ascending aorta, aortic arch and descending thoracic aorta is partially imaged on this exam. This appears unchanged. IMPRESSION: 1. No acute cardiopulmonary findings. 2. Endovascular stent graft redemonstrated within a thoracic aortic aneurysm. Electronically signed by: Jayesh Hart M.D. 08/30/2017 11:59 AM Laboratory Results 08/30/17 11:00 Red Blood Count 3.89, Mean Corpuscular Volume 87.1, Mean Corpuscular Hemoglobin 28.5, Mean Corpuscular Hemoglobin Concent 32.7, Mean Platelet Volume 8.2, Neutrophils (%) (Auto) 81.5, Lymphocytes (%) (Auto) 10.6, Monocytes (%) (Auto) 5.8, Eosinophils (%) (Auto) 1.3, Basophils (%) (Auto) 0.5, Neutrophils # (Auto) 6.32, Lymphocytes # (Auto) 0.82, Monocytes # (Auto) 0.45, Eosinophils # (Auto) 0.10, Basophils # (Auto) 0.04 08/30/17 11:00 Test 08/30/17 11:00 08/30/17 12:24 White Blood Count 7.75 K/uL (4.8-10.8) Red Blood Count 3.89 M/uL (4.7-6.1) Hemoglobin 11.1 g/dL (14.0-18.0) Hematocrit 33.9 % (42-52) Mean Corpuscular Volume 87.1 fL (80-100) Mean Corpuscular Hemoglobin 28.5 pg (25-34) Mean Corpuscular Hemoglobin Concent 32.7 g/dl (32-36) Platelet Count 221 K/uL (130-400) Mean Platelet Volume 8.2 fL (7.4-10.4) Neutrophils (%) (Auto) 81.5 % Lymphocytes (%) (Auto) 10.6 % Monocytes (%) (Auto) 5.8 % Eosinophils (%) (Auto) 1.3 % Basophils (%) (Auto) 0.5 % Neutrophils # (Auto) 6.32 K/uL (1.4-6.5) Lymphocytes # (Auto) 0.82 K/uL (1.2-3.4) Monocytes # (Auto) 0.45 K/uL (0.11-0.59) Eosinophils # (Auto) 0.10 K/uL (0-0.5) Basophils # (Auto) 0.04 K/uL (0-0.2) RDW Standard Deviation 52.8 fL (36.4-46.3) RDW Coefficient of Variation 16.7 % (11.5-14.5) Immature Granulocyte % (Auto) 0.3 % Immature Granulocyte # (Auto) 0.02 K/uL (0.00-0.02) Prothrombin Time 10.3 SECONDS (9.0-12.0) Prothromb Time International Ratio 1.0 (0.9-1.1) Activated Partial Thromboplast Time 28.3 SECONDS (21.0-31.0) Partial Thromboplastin Ratio 1.1 Anion Gap 12.0 mmol/L (3-11) Est Creatinine Clear Calc Drug Dose 14.7 ml/min Estimated GFR () 18.9 Estimated GFR (Non- 16.3 BUN/Creatinine Ratio 9.8 (10-20) Calcium Level 9.1 mg/dl (8.5-10.1) Magnesium Level 2.5 mg/dl (1.8-2.4) Total Bilirubin 0.6 mg/dl (0.2-1) Direct Bilirubin 0.2 mg/dl (0-0.2) Aspartate Amino Transf (AST/SGOT) 17 U/L (15-37) Alanine Aminotransferase (ALT/SGPT) 15 U/L (12-78) Alkaline Phosphatase 94 U/L (45-117) Total Creatine Kinase 99 U/L (39-308) Creatine Kinase MB 1.3 ng/ml (0.5-3.6) Creatine Kinase MB Ratio 1.3 (0-3.0) Troponin I < 0.015 ng/ml (0-0.045) Total Protein 8.2 gm/dl (6.4-8.2) Albumin 3.2 gm/dl (3.4-5.0) Lipase 102 U/L (73-393) Thyroid Stimulating Hormone (TSH) 2.220 uIu/ml (0.300-4.500) CSF Color COLORLESS CSF Appearance CLEAR CSF WBC 1 /uL (0-5) CSF RBC 1 /uL (0) CSF Polynuclear WBCs % CSF Xanthrochromic NO XANTHOCHROMIA CSF Cell Count Tube # 4 CSF Chemistry Tube # 2 CSF Glucose 59 mg/dl (40-70) CSF Total Protein 83.6 mg/dl (15.0-45.0) Laboratory results as stated above per my review. Medications Administered Medications (Trade) Dose Ordered Sig/[place] Route Start Time Stop Time Status Last Admin Dose Admin Sodium Chloride 1,000 ml @ 300 mls/hr Q3H20M STAT IV 08/30/17 11:34 08/30/17 14:53 08/30/17 11:49 300 MLS/HR Lidocaine/ Epinephrine (Xylocaine/Epine 1% Inj) 20 ml STK-MED ONCE .ROUTE 08/30/17 12:06 08/30/17 12:07 DC 08/30/17 12:38 20 ML Procedure Lumbar Puncture Indication: weakness. Verbal consent was obtained after the risks and benefits were explained, including but not limited to headache, bleeding/clotting, scarring, infection, pain, and bone/joint/nerve damage. At this time, the risks of the procedure are less than the risks of NOT performing the procedure. A time out was taken and the correct patient and site identified. The patient was placed in the left lateral Recumbant position and the back was prepped with betadine and draped in the standard fashion. The L3 intervertebral space was identified, anesthetized locally with 1% lidocaine without epinephrine, and the spinal needle was inserted through the skin with the bevel parallel to the dural fibers. The needle was carefully advanced into the lumbar cistern and 4 tubes of clear CSF was obtained. The stylet was replaced and the needle was removed. A bandaid was placed and the patient was placed in the supine position. The patient tolerated the procedure well and there were no complications. ECG Per My Interpretation Indication: weakness Rate (beats per minute): 90 Rhythm: normal sinus Findings: no ectopy, other (No ST elevation.) ED Course 1127: Previous medical records were reviewed. The patient was evaluated in room B11B. A complete history and physical examination was performed. 1134: Ordered Sodium Chloride 1000 ml @ 300 mls/hr IV. 1210: I performed the lumbar puncture. See the procedure note for details. 1340: On reevaluation, the patient is resting. I discussed the results and findings with him. He verbalized agreement of the treatment plan. I spoke with Dr. Ley of [facility]. The patient will be transferred to the [facility] ICU. Medical Decision Differential includes acute coronary syndrome, myocardial infarction, CVA, TIA, anemia, infection, pneumonia, UTI, pyelonephritis, poor nutrition, dehydration, electrolyte disturbance,hypoglycemia. This is a 77-year-old male who presents to the ED with a chief complaint of bilateral lower extremity weakness. The patient states that he has had progressive symptoms since this past Wednesday when he was evaluated in the emergency department. The patient reports that he has had some bilateral paresthesias to the upper extremities and loss of fine motor control of his hands. He also reports increasing weakness in his legs to the point where he is unable to walk today. The patient also reports some discomfort in the thoracic spine area just behind the left shoulder blade. The patient's states that he is unable to hold things because of his lack of strength in the hands. The patient did have an MRI on 08/27 of the brain that did not show any significant acute abnormalities. There was some moderate chronic age-related vascular changes. The patient's evaluation today reveals that he has decent strength in the bilateral lower extremities on exam. The patient is able to lift the legs off of the bed bilaterally. Despite this, he states that he was unable to bear weight. The patient also is noted to have weakness in the bilateral upper extremities and was unable to adequately hold the call jackson. The patient was also noted to have lack of reflexes in the lower and upper extremities although baseline is on certain. The patient's CBC today was unremarkable, BUN is 33 and creatinine is 3.38. He is dialysis dependent renal failure patient. Magnesium was 2.5. Troponin was negative. CSF fluid reveals elevated protein levels that are double the high normal limits. EKG shows normal sinus rhythm. Chest x-ray did not show acute disease. Negative inspiratory force was measured by respiratory therapy as 21. Because of the patient's findings today, high suspicion for Guillain-Rm syndrome was present. The patient was also noted to have some difficulty swallowing applesauce but not liquid. IVIG 20 g was ordered. I spoke with Dr. Vizcaino here who feels that the patient might be best served being transferred to a tertiary care center. I spoke with Dr. Ley from [facility]. He accepted the patient in transfer to the neuro ICU there. The patient will be transferred there by ALS ambulance. During his ED stay, he did not have any respiratory issues. Medication Reconcilliation Current Medication List: was personally reviewed by me Blood Pressure Screening Patient's blood pressure: Elevated blood pressure Blood pressure disposition: Referred to PCP Consults Time Called: 1325 Consulting Physician: Dr. Ley - [facility] Returned Call: [phone] Discussed the patient's case. The patient will be transferred to the [facility] ICU by ground for further treatment and disposition. Impression Primary Impression: Guillain-Kingsbury syndrome Scribe Attestation The scribe's documentation has been prepared under my direction and personally reviewed by me in its entirety. I confirm that the note above accurately reflects all work, treatment, procedures, and medical decision making performed by me. Departure Information Dispostion Transfer Acute Care Facility ([facility] by ground) Referrals Kelli Santos C.R.Blayne (PCP) Patient Instructions My [facility]
[2017-08-30] MEDS ORDERED: ACET-1256 PO (14:58)
[2017-08-30] MEDS ORDERED: SIMV80TA2 PO (15:47)
[2017-08-30] MEDS ORDERED: ONDANSETRON INJ 2 MG/ML 2 ML VIAL IV STA (18:12)
[2017-08-30] MEDS ORDERED: HYDROmorphone INJ 0.5 MG/0.5 ML SYR IV STA (18:12)
[2017-08-30] MEDS ORDERED: ACETAMINOPHEN IV 100 ML IV STA (18:12)
--- NOTE | 2017-08-30 18:28 | EMERGENCY ROOM VISIT NOTE ---
ED Visit Note Received patient in sign out at change of shift. History and physical verified by me. Patient is awaiting transfer to [facility]. The patient was given Toradol Dilaudid and Zofran for his back pain here in the emergency department. Problem List Medical Problems: (1) Abdominal aortic aneurysm Status: Chronic (2) Anemia, chronic disease Status: Chronic (3) CKD (chronic kidney disease), stage IV Status: Chronic (4) Dyslipidemia Status: Chronic (5) Heparin induced thrombocytopenia Status: Chronic (6) HTN (hypertension) Status: Chronic (7) Thoracic aortic aneurysm Permanent Comment: CT 09/2016 - The proximal descending thoracic aorta measures 9.2 x 7.6 cm. It previously measured 7 x 5.8cm. The inferior portion of the aneurysm involving the mid descending thoracic aorta measures approximately 10.3 x 8.5 cm. It previously measured 9.3 x 6.4 cm. Status: Chronic (8) Thoracic Aortic Stent Graft Status: Chronic Surgical Problems: (1) H/O thoracic aortic aneurysm repair Permanent Comment: 07/30/2014- endovascular repair descending thoracic aortic; [facility] [place] Status: Chronic (2) History of vasectomy Status: Chronic (3) S/P AAA repair Permanent Comment: 07/05/2006- open AAA repair with tube graft, suprarenal clamp , Dr. Aviles Status: Chronic (4) S/P tonsillectomy Status: Chronic Current/Historical Medications Scheduled Aspirin Enteric Coated (Ecotrin Or Generic), 81 MG PO QAM Cholecalciferol (Vitamin D3), 3,000 UNITS PO QAM Clopidogrel (Plavix), 75 MG PO QAM Finasteride (Proscar), 5 MG PO QAM Metoprolol Tartrate (Lopressor) (Lopressor), 50 MG PO BID Sertraline (Zoloft), 50 MG PO QAM Simvastatin (Zocor), 40 MG PO QPM Scheduled PRN Acetaminophen (Tylenol), 1 TAB PO Q8 PRN for Headache Ipratropium-Albuterol (Combivent Respimat), 1 PUFFS INH BID PRN for SOB/Wheezing Allergies Coded Allergies: Heparin (Verified Allergy, Unknown, platelet count decreased, 08/30/17) Sulfa Antibiotics (Verified Allergy, Unknown, hives, 08/30/17) Vital Signs Date Time Temp Pulse Resp B/P (MAP) Pulse Ox O2 Delivery O2 Flow Rate FiO2 08/30/17 17:46 185/116 08/30/17 17:45 110 15 100 08/30/17 17:31 192/114 08/30/17 17:30 105 14 08/30/17 17:11 36.6 107 95 Room Air 08/30/17 17:01 198/117 08/30/17 16:49 183/110 08/30/17 16:48 08/30/17 16:44 36.4 104 18 97 Room Air 08/30/17 16:37 106 95 08/30/17 16:32 155/135 08/30/17 16:30 100 91 Room Air 08/30/17 16:14 36.6 105 16 192/109 99 Room Air 08/30/17 15:47 36.5 113 14 199/112 100 Room Air 08/30/17 15:01 186/115 08/30/17 15:00 113 21 100 Room Air 08/30/17 14:31 194/113 08/30/17 14:30 112 22 08/30/17 14:02 197/84 08/30/17 14:00 107 22 96 Room Air 08/30/17 13:20 100 08/30/17 13:06 102 16 100 Room Air 08/30/17 13:01 174/92 08/30/17 12:36 98 17 100 Room Air 08/30/17 12:31 166/85 08/30/17 12:30 99 17 100 Room Air 08/30/17 12:01 177/106 08/30/17 12:00 103 22 95 Room Air 08/30/17 11:31 186/104 08/30/17 11:30 102 16 99 Room Air 08/30/17 11:05 83 12 158/99 95 Room Air 08/30/17 10:58 96 08/30/17 10:45 100 Room Air 08/30/17 10:45 36.5 100 16 187/105 100 Room Air Laboratory Results 08/30/17 11:00 Red Blood Count 3.89, Mean Corpuscular Volume 87.1, Mean Corpuscular Hemoglobin 28.5, Mean Corpuscular Hemoglobin Concent 32.7, Mean Platelet Volume 8.2, Neutrophils (%) (Auto) 81.5, Lymphocytes (%) (Auto) 10.6, Monocytes (%) (Auto) 5.8, Eosinophils (%) (Auto) 1.3, Basophils (%) (Auto) 0.5, Neutrophils # (Auto) 6.32, Lymphocytes # (Auto) 0.82, Monocytes # (Auto) 0.45, Eosinophils # (Auto) 0.10, Basophils # (Auto) 0.04 08/30/17 11:00 Test 08/30/17 11:00 08/30/17 12:24 08/30/17 16:18 White Blood Count 7.75 K/uL (4.8-10.8) Red Blood Count 3.89 M/uL (4.7-6.1) Hemoglobin 11.1 g/dL (14.0-18.0) Hematocrit 33.9 % (42-52) Mean Corpuscular Volume 87.1 fL (80-100) Mean Corpuscular Hemoglobin 28.5 pg (25-34) Mean Corpuscular Hemoglobin Concent 32.7 g/dl (32-36) Platelet Count 221 K/uL (130-400) Mean Platelet Volume 8.2 fL (7.4-10.4) Neutrophils (%) (Auto) 81.5 % Lymphocytes (%) (Auto) 10.6 % Monocytes (%) (Auto) 5.8 % Eosinophils (%) (Auto) 1.3 % Basophils (%) (Auto) 0.5 % Neutrophils # (Auto) 6.32 K/uL (1.4-6.5) Lymphocytes # (Auto) 0.82 K/uL (1.2-3.4) Monocytes # (Auto) 0.45 K/uL (0.11-0.59) Eosinophils # (Auto) 0.10 K/uL (0-0.5) Basophils # (Auto) 0.04 K/uL (0-0.2) RDW Standard Deviation 52.8 fL (36.4-46.3) RDW Coefficient of Variation 16.7 % (11.5-14.5) Immature Granulocyte % (Auto) 0.3 % Immature Granulocyte # (Auto) 0.02 K/uL (0.00-0.02) Prothrombin Time 10.3 SECONDS (9.0-12.0) Prothromb Time International Ratio 1.0 (0.9-1.1) Activated Partial Thromboplast Time 28.3 SECONDS (21.0-31.0) Partial Thromboplastin Ratio 1.1 Anion Gap 12.0 mmol/L (3-11) Est Creatinine Clear Calc Drug Dose 14.7 ml/min Estimated GFR () 18.9 Estimated GFR (Non- 16.3 BUN/Creatinine Ratio 9.8 (10-20) Calcium Level 9.1 mg/dl (8.5-10.1) Magnesium Level 2.5 mg/dl (1.8-2.4) Total Bilirubin 0.6 mg/dl (0.2-1) Direct Bilirubin 0.2 mg/dl (0-0.2) Aspartate Amino Transf (AST/SGOT) 17 U/L (15-37) Alanine Aminotransferase (ALT/SGPT) 15 U/L (12-78) Alkaline Phosphatase 94 U/L (45-117) Total Creatine Kinase 99 U/L (39-308) Creatine Kinase MB 1.3 ng/ml (0.5-3.6) Creatine Kinase MB Ratio 1.3 (0-3.0) Troponin I < 0.015 ng/ml (0-0.045) Total Protein 8.2 gm/dl (6.4-8.2) Albumin 3.2 gm/dl (3.4-5.0) Lipase 102 U/L (73-393) Thyroid Stimulating Hormone (TSH) 2.220 uIu/ml (0.300-4.500) CSF Color COLORLESS CSF Appearance CLEAR CSF WBC 1 /uL (0-5) CSF RBC 1 /uL (0) CSF Polynuclear WBCs % CSF Xanthrochromic NO XANTHOCHROMIA CSF Cell Count Tube # 4 CSF Chemistry Tube # 2 CSF Glucose 59 mg/dl (40-70) CSF Total Protein 83.6 mg/dl (15.0-45.0) Urine Color YELLOW Urine Appearance CLEAR (CLEAR) Urine pH 6.0 (4.5-7.5) Urine Specific [place] 1.018 (1.000-1.030) Urine Protein 3+ (NEG) Urine Glucose (UA) NEG (NEG) Urine Ketones TRACE (NEG) Urine Occult Blood 1+ (NEG) Urine Nitrite NEG (NEG) Urine Bilirubin NEG (NEG) Urine Urobilinogen NEG (NEG) Urine Leukocyte Esterase NEG (NEG) Urine WBC (Auto) 1-5 /hpf (0-5) Urine RBC (Auto) 0-4 /hpf (0-4) Urine Hyaline Casts (Auto) 1-5 /lpf (0-5) Urine Epithelial Cells (Auto) 5-10 /lpf (0-5) Urine Bacteria (Auto) NEG (NEG) Medications Administered Medications (Trade) Dose Ordered Sig/[place] Route Start Time Stop Time Status Last Admin Dose Admin Sodium Chloride 1,000 ml @ 300 mls/hr Q3H20M STAT IV 08/30/17 11:34 08/30/17 14:53 DC 08/30/17 11:49 300 MLS/HR Lidocaine/ Epinephrine (Xylocaine/Epine 1% Inj) 20 ml STK-MED ONCE .ROUTE 08/30/17 12:06 08/30/17 12:07 DC 08/30/17 12:38 20 ML Immune Globulin 20 gm/Empty Bag 400 ml @ 35 mls/hr 1530 IV 08/30/17 15:30 08/30/17 23:59 08/30/17 15:36 35 MLS/HR Departure Information Impression Primary Impression: Guillain-Lockwood syndrome Dispostion Transfer Acute Care Facility Referrals Kelli Santos, ChikisR.N.P (PCP) Patient Instructions [facility]
[2017-08-30 18:58] VITALS: TEMP 36.6
[2017-08-30 21:30] VITALS: BP 199/150; PULSE 101; O2SAT 98
== END 2017-08-30 21:30 | disposition short-term general hospital (02) ==
LOC: EDBD 10:45 → C.EDB 10:46
DX: G61.0 Guillain-Barre syndrome (principal); M54.6 Pain in thoracic spine; G89.29 Other chronic pain; Z99.2 Dependence on renal dialysis; I77.0 Arteriovenous fistula, acquired; I71.4 Abdominal aortic aneurysm, without rupture; D64.9 Anemia, unspecified; J44.9 Chronic obstructive pulmonary disease, unspecified; N18.4 Chronic kidney disease, stage 4 (severe); I25.10 Atherosclerotic heart disease of native coronary artery without angina pectoris; E78.5 Hyperlipidemia, unspecified; J43.9 Emphysema, unspecified; K21.9 Gastro-esophageal reflux disease without esophagitis; I12.9 Hypertensive chronic kidney disease with stage 1 through stage 4 chronic kidney disease, or unspecified chronic kidney disease; N40.0 Benign prostatic hyperplasia without lower urinary tract symptoms; E03.9 Hypothyroidism, unspecified; I71.2 Thoracic aortic aneurysm, without rupture; E55.9 Vitamin D deficiency, unspecified; Z87.891 Personal history of nicotine dependence; Z79.82 Long term (current) use of aspirin; Z98.52 Vasectomy status; Z95.820 Peripheral vascular angioplasty status with implants and grafts; Z82.49 Family history of ischemic heart disease and other diseases of the circulatory system; Z88.2 Allergy status to sulfonamides; Z88.8 Allergy status to other drugs, medicaments and biological substances